=== PATIENT | male | born 2000 | race Hispanic/Latino ===

== ENCOUNTER 2024-09-09 12:24 | Emergency (ER) | payer BC, OTHER, SELFPAY ==
--- OUTSIDE RECORDS SUMMARY | 2024-09-09 12:29 | XMS REPORT | Continuity of Care Document ---
Author Name Unknown Address [address] [facility] [address] [place] [address] [facility] Address [address] [facility] [place] [address] Care Team Providers Care Precision Lens Technician Name Role Phone No MD, Pcp Primary Care Physician Unavailab ANGELICA Hunt Attending Clinician Unavail able Doctor Unassigned, [place] Attending Clinician U BEATRIZ Ryan Attending Clinician Unavailable BEATRIZ RIZVI Attending Clinician Unavailable Beatriz Rizvi DO Attending Clinician [phone] Doctor Unassigned, [place] Attending Clinician U Angelica Martinez MD Attending Clinician ASHELY AGARWAL Attending Clinician Unavaila Ashely Busch Attending Clinician + [phone] Zita Agee MD Attending Clinician Ebony Singh MD Attending Clinician [phone] ZITA AGEE Attending Clinician Candice osmanilaSumi Gooden APRN Attending Clinician [phone] EBONY SINGH Attending Clinician Unav ailable TODD PEREIRA Attending Clinician Unavailable Todd May Attending Clinician [phone] ANGELICA MONTANO Admitting Clinician Unavail able BEATRIZ RIZVI Admitting Clinician Unavailable Charmaine MALLORY, Angelica German Admitting Clinician TODD PEREIRA Admitting Clinician Unavailable Payers Payer Name Policy Type Policy Number Effective Date Expirati on Date Source [facility] [id number] 2022 00:00:00 [employer] [place] [id number] 2022 00:00:00 2022 00:00:00 Problems Condition Name Condition Details Condition Category Status Onset Date Resolution Date Last Treatment Date Treating Clinician Comments Source Obesity (BMI 30-39.9) Obesity (BMI 30-39.9) Disease Active 5-20 00:00: 00 [facility] Acute left ankle pain Acute left ankle pain Disease Active 7-13 00:00: 00 [facility] Complete rupture of left Achilles tendon Complete rupture of left Achilles tendon Disease Active 7-11 00:00: 00 [facility] Mass of left thigh Mass of left thigh Disease Active 1-27 00:00: 00 [facility] Allergies, Adverse Reactions, Alerts Allergy Name Allergy Type Status Severity Reaction(s) Onset Date Inactive Date Treating Clinician Comments Source NO KNOWN ALLERGIE S Drug Class Active [facility] Social History Social Habit Start Date Stop Date Quantity Comments Source [facility] of tobacco use Cigar Smoker [facility] Alcoholic beverage intake 2023-08-29 00:00:00 2023-08-29 00:00:00 Ex-drinker (finding) [facility] Tobacco use and exposure 2023-08-29 00:00:00 2023-08-29 00:00:00 Smokeless tobacco non-user [facility] Alcohol intake 2023-07-06 00:00:00 2023-07-06 00:00:00 Ex-drinker (finding) [facility] History of Social function 2023-07-05 00:00:00 2023-07-05 00:00:00 [facility] Exposure to SARS-CoV-2 (event) 2022-07-01 00:00:00 2022-07-11 08:28:00 Not sure [facility] Sex assigned at 2000 00:00:00 2000 00:00:00 [facility] Smoking Status Start Date Stop Date Source Tobacco smoking consumption unknown [facility] Occasional tobacco smoker 2023-08-29 00:00:00 [facility] Smokes tobacco daily 2023-07-05 00:00:00 [facility] Never smoked tobacco [facility] Medications Ordered Medication Name Filled Medication Name Start Date Stop Date Current Medication? Ordering Clinician Indication Dosage Frequency Signature (SIG) Comments Components Source dexamethaso ne sod phos PF injection 10 mg 2023-05 17:15: 00 03-31 16:24 :00 No 10mg 10 mg, Oral, ONCE, 1 dose, On Sat03/31/24 at 1115, Routine [facility] ondansetron (ZOFRAN-ODT ) disintegrat ing tablet 4 mg 2023-05 15:30: 00 03-31 14:31 :00 No 4mg 4 mg, Oral, ONCE, 1 dose, On Sat03/31/24 at 0930, Routine [facility] HYDROcodone -acetaminop hen (NORCO) 10-325 mg tablet 1 tablet 2023-05 15:30: 00 03-31 14:31 :00 No 1{tbl} 1 tablet, Oral, ONCE NOW, 1 dose, On Sat03/31/24 at 0930, Routine [facility] naproxen 500 mg tablet 2023-05 00:00: 00 Yes [id number] 500mg Take 1 tablet by mouth in the morning and 1 tablet in the evening. Take with meals. [facility] HYDROcodone -acetaminop hen (NORCO 5) 5-325 mg tablet 1 tablet 10-23 03:15: 00 10-23 02:35 :00 No 1{tbl} 1 tablet, Oral, ONCE, 1 dose, On Sat10/23/23 at 2215, PATRICIO [facility] cephALEXin 500 mg tablet 10-22 00:00: 00 10-30 04:59 :00 No [id number] 500mg Take 1 tablet by mouth in the morning and 1 tablet at noon and 1 tablet in the evening. Do all this for 7 days. [facility] HYDROcodone -acetaminop hen (NORCO 5) 5-325 mg tablet 1 tablet 10-13 15:15: 00 10-13 15:59 :00 No 1{tbl} 1 tablet, Oral, ONCE, 1 dose, On Sat10/14/23 at 1015, Routine, PACU [facility] traMADoL (ULTRAM) tablet 50 mg 10-13 15:11: 29 10-13 21:22 :13 No 50mg [facility] acetaminoph en (TYLENOL) tablet 650 mg 10-13 15:11: 29 10-13 21:22 :13 No 650mg [facility] FENTanyl PF (SUBLIMAZE (PF)) injection 25 mcg 10-13 15:11: 26 10-13 21:22 :13 No 25ug 25 mcg, Slow IV Push, Q5MIN PRN, 4 doses, Starting on Sat10/14/23 at 1011, Until Sat10/14/23 at 1622, Routine, Pain (scale 4-6), PACU [facility] NaCl 0.9% (NS) injection 10-13 14:20: 00 10-13 15:17 :22 No PRN, Starting on Sat10/14/23 at 0920, Until Sat10/14/23 at 1017, Routine, Intra-op [facility] bupivacaine (preserv free) (SENSORCAIN E MPF) 0.25 % (2.5 mg/mL) injection 10-13 14:18: 00 10-13 15:17 :22 No PRN, Starting on Sat10/14/23 at 0918, Until Sat10/14/23 at 1017, Routine, Intra-op [facility] lactated ringers IV infusion 1,000 mL 10-13 13:15: 00 10-13 13:14 :00 No 1000mL at 42 mL/hr, 1,000 mL, IV Infusion, ONCE, 1 dose, On Sat10/14/23 at 0815, Routine, DSU Pre-op [facility] traMADoL 50 mg tablet 10-13 00:00: 00 10-21 04:59 :00 No [id number] 50mg Take 1 tablet by mouth every 6 (six) hours as needed for Pain (scale 4-6) or Pain (scale 7-10) for up to 7 days. Indication s: acute pain [facility] iopamidol (ISOVUE 370-500 mL) injection 100 mL 10-01 13:29: 00 10-01 13:35 :00 No [id number] 100mL 100 mL, Intravenou s, ONCE, 1 dose, On Sat10/02/23 at 0845, Routine [facility] traMADol (Ultram) 50 MG tablet 12-31 00:00: 00 Yes [id number] 100mg Q6H Take 2 tablets (100 mg total) by mouth every 6 (six) hours if needed for moderate pain. [facility] HYDROcodone -acetaminop hen ([place]) 10-325 MG tablet 12-31 00:00: 00 Yes [id number] 1{tbl} Take 1 tablet by mouth every 4 (four) hours if needed for severe pain. [facility] ibuprofen 800 mg tablet 2-15 00:00: 00 Yes [id number] 800mg Take 1 tablet by mouth every 8 (eight) hours as needed for Pain (scale 4-6). [facility] No known medications 06-22 18:10: 03 No [facility] Immunizations Ordered Immunization Name Filled Immunization Name Date Status Comments Source HPV 2014-10-21 00:00:00 Completed HPV 2013-10-16 00:00:00 Completed HPV 2013-01-13 00:00:00 Completed TDAP 2011-09-27 00:00:00 Completed Meningococcal Polysaccharide (groups A, C, Y and W-135) conjugate vaccine (MCV4P) 2011-09-27 00:00:00 Completed HEPATITIS A 2011-09-27 00:00:00 Completed Varicella (varivax)(chicken pox) 2007-11-10 00:00:00 Completed HEPATITIS A 2007-11-10 00:00:00 Completed IPV 2003-09-08 00:00:00 Completed MMR 2003-09-08 00:00:00 Completed DTaP, Unspecified Formulation 2003-09-08 00:00:00 Completed Varicella (varivax)(chicken pox) 2003-02-01 00:00:00 Completed [facility] Hep B, Adol or Pedi Dosage 2001-10-27 00:00:00 Completed IPV 2000-09-10 00:00:00 Completed MMR 2000-09-10 00:00:00 Completed HIB 4 Dose Schedule 2000-09-10 00:00:00 Completed Hep B, Adol or Pedi Dosage 2000-09-10 00:00:00 Completed DTaP, Unspecified Formulation 2000-09-10 00:00:00 Completed HIB 4 Dose Schedule 1999 00:00:00 Completed Hep B, Adol or Pedi Dosage 1999 00:00:00 Completed DTaP, Unspecified Formulation 1999 00:00:00 Completed IPV 1999 00:00:00 Completed HIB 4 Dose Schedule 1999 00:00:00 Completed DTaP, Unspecified Formulation 1999 00:00:00 Completed IPV 1999 00:00:00 Completed HIB 4 Dose Schedule 1999 00:00:00 Completed DTaP, Unspecified Formulation 1999 00:00:00 Completed DTaP, Unspecified Formulation Unknown Completed [facility] TDAP Unknown Completed [facility] Meningococcal Polysaccharide (groups A, C, Y and W-135) conjugate vaccine (MCV4P) Unknown Completed [facility] Varicella (varivax)(chicken pox) Unknown Completed [facility] IPV Unknown Completed [facility] MMR Unknown Completed [facility] HPV Unknown Completed [facility] HIB 4 Dose Schedule Unknown Completed [facility] Hep B, Adol or Pedi Dosage Unknown Completed [facility] HEPATITIS A Unknown Completed [facility] DTaP, Unspecified Formulation Unknown Completed [facility] Varicella (varivax)(chicken pox) Unknown Completed [facility] TDAP Unknown Completed [facility] IPV Unknown Completed [facility] MMR Unknown Completed [facility] Meningococcal Polysaccharide (groups A, C, Y and W-135) conjugate vaccine (MCV4P) Unknown Completed [facility] HPV Unknown Completed [facility] Varicella (varivax)(chicken pox) Unknown Completed [facility] HIB 4 Dose Schedule Unknown Completed [facility] Hep B, Adol or Pedi Dosage Unknown Completed [facility] HEPATITIS A Unknown Completed [facility] DTaP, Unspecified Formulation Unknown Completed [facility] Varicella (varivax)(chicken pox) Unknown Completed [facility] TDAP Unknown Completed [facility] TDAP Unknown Completed [facility] IPV Unknown Completed [facility] MMR Unknown Completed [facility] Meningococcal Polysaccharide (groups A, C, Y and W-135) conjugate vaccine (MCV4P) Unknown Completed [facility] HPV Unknown Completed [facility] IPV Unknown Completed [facility] HIB 4 Dose Schedule Unknown Completed [facility] Hep B, Adol or Pedi Dosage Unknown Completed [facility] HEPATITIS A Unknown Completed [facility] DTaP, Unspecified Formulation Unknown Completed [facility] MMR Unknown Completed [facility] Meningococcal Polysaccharide (groups A, C, Y and W-135) conjugate vaccine (MCV4P) Unknown Completed [facility] HPV Unknown Completed [facility] HIB 4 Dose Schedule Unknown Completed [facility] Hep B, Adol or Pedi Dosage Unknown Completed [facility] HEPATITIS A Unknown Completed [facility] DTaP, Unspecified Formulation Unknown Completed [facility] TDAP Unknown Completed [facility] Meningococcal Polysaccharide (groups A, C, Y and W-135) conjugate vaccine (MCV4P) Unknown Completed [facility] Varicella (varivax)(chicken pox) Unknown Completed [facility] IPV Unknown Completed [facility] MMR Unknown Completed [facility] HPV Unknown Completed [facility] HIB 4 Dose Schedule Unknown Completed [facility] Hep B, Adol or Pedi Dosage Unknown Completed [facility] HEPATITIS A Unknown Completed [facility] DTaP, Unspecified Formulation Unknown Completed [facility] Varicella (varivax)(chicken pox) Unknown Completed [facility] TDAP Unknown Completed [facility] IPV Unknown Completed [facility] MMR Unknown Completed [facility] Meningococcal Polysaccharide (groups A, C, Y and W-135) conjugate vaccine (MCV4P) Unknown Completed [facility] HPV Unknown Completed [facility] HIB 4 Dose Schedule Unknown Completed [facility] Hep B, Adol or Pedi Dosage Unknown Completed [facility] HEPATITIS A Unknown Completed [facility] DTaP, Unspecified Formulation Unknown Completed [facility] Varicella (varivax)(chicken pox) Unknown Completed [facility] TDAP Unknown Completed [facility] IPV Unknown Completed [facility] MMR Unknown Completed [facility] Meningococcal Polysaccharide (groups A, C, Y and W-135) conjugate vaccine (MCV4P) Unknown Completed [facility] HPV Unknown Completed [facility] HIB 4 Dose Schedule Unknown Completed [facility] Hep B, Adol or Pedi Dosage Unknown Completed [facility] HEPATITIS A Unknown Completed [facility] DTaP, Unspecified Formulation Unknown Completed [facility] Varicella (varivax)(chicken pox) Unknown Completed [facility] TDAP Unknown Completed [facility] IPV Unknown Completed [facility] MMR Unknown Completed [facility] Meningococcal Polysaccharide (groups A, C, Y and W-135) conjugate vaccine (MCV4P) Unknown Completed [facility] HPV Unknown Completed [facility] HIB 4 Dose Schedule Unknown Completed [facility] Hep B, Adol or Pedi Dosage Unknown Completed [facility] HEPATITIS A Unknown Completed [facility] DTaP, Unspecified Formulation Unknown Completed [facility] Varicella (varivax)(chicken pox) Unknown Completed [facility] TDAP Unknown Completed [facility] IPV Unknown Completed [facility] MMR Unknown Completed [facility] Meningococcal Polysaccharide (groups A, C, Y and W-135) conjugate vaccine (MCV4P) Unknown Completed [facility] HPV Unknown Completed [facility] HIB 4 Dose Schedule Unknown Completed [facility] Hep B, Adol or Pedi Dosage Unknown Completed [facility] HEPATITIS A Unknown Completed [facility] DTaP, Unspecified Formulation Unknown Completed [facility] Varicella (varivax)(chicken pox) Unknown Completed [facility] TDAP Unknown Completed [facility] IPV Unknown Completed [facility] MMR Unknown Completed [facility] Meningococcal Polysaccharide (groups A, C, Y and W-135) conjugate vaccine (MCV4P) Unknown Completed [facility] HPV Unknown Completed [facility] HIB 4 Dose Schedule Unknown Completed [facility] Hep B, Adol or Pedi Dosage Unknown Completed [facility] HEPATITIS A Unknown Completed [facility] DTaP, Unspecified Formulation Unknown Completed [facility] Varicella (varivax)(chicken pox) Unknown Completed [facility] TDAP Unknown Completed [facility] IPV Unknown Completed [facility] MMR Unknown Completed [facility] Meningococcal Polysaccharide (groups A, C, Y and W-135) conjugate vaccine (MCV4P) Unknown Completed [facility] HPV Unknown Completed [facility] HIB 4 Dose Schedule Unknown Completed [facility] Hep B, Adol or Pedi Dosage Unknown Completed [facility] HEPATITIS A Unknown Completed [facility] DTaP, Unspecified Formulation Unknown Completed [facility] Varicella (varivax)(chicken pox) Unknown Completed [facility] TDAP Unknown Completed [facility] IPV Unknown Completed [facility] MMR Unknown Completed [facility] Meningococcal Polysaccharide (groups A, C, Y and W-135) conjugate vaccine (MCV4P) Unknown Completed [facility] HPV Unknown Completed [facility] HIB 4 Dose Schedule Unknown Completed [facility] Hep B, Adol or Pedi Dosage Unknown Completed [facility] HEPATITIS A Unknown Completed [facility] DTaP, Unspecified Formulation Unknown Completed [facility] Varicella (varivax)(chicken pox) Unknown Completed [facility] TDAP Unknown Completed [facility] IPV Unknown Completed [facility] MMR Unknown Completed [facility] Meningococcal Polysaccharide (groups A, C, Y and W-135) conjugate vaccine (MCV4P) Unknown Completed [facility] HPV Unknown Completed [facility] HIB 4 Dose Schedule Unknown Completed [facility] Hep B, Adol or Pedi Dosage Unknown Completed [facility] HEPATITIS A Unknown Completed [facility] DTaP, Unspecified Formulation Unknown Completed [facility] Varicella (varivax)(chicken pox) Unknown Completed [facility] TDAP Unknown Completed [facility] IPV Unknown Completed [facility] MMR Unknown Completed [facility] Meningococcal Polysaccharide (groups A, C, Y and W-135) conjugate vaccine (MCV4P) Unknown Completed [facility] HPV Unknown Completed [facility] HIB 4 Dose Schedule Unknown Completed [facility] Hep B, Adol or Pedi Dosage Unknown Completed [facility] HEPATITIS A Unknown Completed [facility] DTaP, Unspecified Formulation Unknown Completed [facility] Varicella (varivax)(chicken pox) Unknown Completed [facility] TDAP Unknown Completed [facility] IPV Unknown Completed [facility] MMR Unknown Completed [facility] Meningococcal Polysaccharide (groups A, C, Y and W-135) conjugate vaccine (MCV4P) Unknown Completed [facility] HPV Unknown Completed [facility] HIB 4 Dose Schedule Unknown Completed [facility] Hep B, Adol or Pedi Dosage Unknown Completed [facility] HEPATITIS A Unknown Completed [facility] DTaP, Unspecified Formulation Unknown Completed [facility] Varicella (varivax)(chicken pox) Unknown Completed [facility] TDAP Unknown Completed [facility] IPV Unknown Completed [facility] MMR Unknown Completed [facility] Meningococcal Polysaccharide (groups A, C, Y and W-135) conjugate vaccine (MCV4P) Unknown Completed [facility] HPV Unknown Completed [facility] HIB 4 Dose Schedule Unknown Completed [facility] Hep B, Adol or Pedi Dosage Unknown Completed [facility] HEPATITIS A Unknown Completed [facility] DTaP, Unspecified Formulation Unknown Completed [facility] Varicella (varivax)(chicken pox) Unknown Completed [facility] TDAP Unknown Completed [facility] IPV Unknown Completed [facility] MMR Unknown Completed [facility] Meningococcal Polysaccharide (groups A, C, Y and W-135) conjugate vaccine (MCV4P) Unknown Completed [facility] HPV Unknown Completed [facility] HIB 4 Dose Schedule Unknown Completed [facility] Hep B, Adol or Pedi Dosage Unknown Completed [facility] HEPATITIS A Unknown Completed [facility] DTaP, Unspecified Formulation Unknown Completed [facility] Varicella (varivax)(chicken pox) Unknown Completed [facility] TDAP Unknown Completed [facility] IPV Unknown Completed [facility] MMR Unknown Completed [facility] Meningococcal Polysaccharide (groups A, C, Y and W-135) conjugate vaccine (MCV4P) Unknown Completed [facility] HPV Unknown Completed [facility] TDAP Unknown Completed [facility] Meningococcal Polysaccharide (groups A, C, Y and W-135) conjugate vaccine (MCV4P) Unknown Completed [facility] HIB 4 Dose Schedule Unknown Completed [facility] Varicella (varivax)(chicken pox) Unknown Completed [facility] IPV Unknown Completed [facility] MMR Unknown Completed [facility] HPV Unknown Completed [facility] HIB 4 Dose Schedule Unknown Completed [facility] Hep B, Adol or Pedi Dosage Unknown Completed [facility] HEPATITIS A Unknown [facility] [facility] DTaP, Unspecified Formulation Unknown Completed [facility] Varicella (varivax)(chicken pox) Unknown Completed [facility] TDAP Unknown Completed [facility] IPV Unknown Completed [facility] Hep B, Adol or Pedi Dosage Unknown Completed [facility] MMR Unknown Completed [facility] Meningococcal Polysaccharide (groups A, C, Y and W-135) conjugate vaccine (MCV4P) Unknown Completed [facility] HPV Unknown Completed [facility] HIB 4 Dose Schedule Unknown Completed [facility] Hep B, Adol or Pedi Dosage Unknown Completed [facility] HEPATITIS A Unknown Completed [facility] DTaP, Unspecified Formulation Unknown Completed [facility] HEPATITIS A Unknown Completed [facility] Varicella (varivax)(chicken pox) Unknown Completed [facility] TDAP Unknown Completed [facility] IPV Unknown Completed [facility] MMR Unknown Completed [facility] Meningococcal Polysaccharide (groups A, C, Y and W-135) conjugate vaccine (MCV4P) Unknown Completed [facility] HPV Unknown Completed [facility] HIB 4 Dose Schedule Unknown Completed [facility] Hep B, Adol or Pedi Dosage Unknown Completed [facility] HEPATITIS A Unknown Completed [facility] DTaP, Unspecified Formulation Unknown Completed [facility] Vital Signs Vital Name Observation Time Observation Value Comments S ource Systolic blood pressure 2024-03-31 16:25:00 135 mm[Hg] [facility] Diastolic blood pressure 2024-03-31 16:25:00 89 mm[Hg] [facility] Heart rate 2024-03-31 16:25:00 74 /min [facility] Body temperature 2024-03-31 16:25:00 37.11 [place] [facility] Respiratory rate 2024-03-31 16:25:00 19 /min [facility] Oxygen saturation in Arterial blood by Pulse oximetry 2024-03-31 16:25:00 100 /min [facility] Body height 2024-03-31 14:00:00 172.7 cm [facility] Body weight 2024-03-31 14:00:00 90.719 kg [facility] BMI 2024-03-31 14:00:00 30.41 kg/m2 [facility] Systolic blood pressure 2023-10-28 13:06:00 150 mm[Hg] [facility] Diastolic blood pressure 2023-10-28 13:06:00 107 mm[Hg] [facility] Heart rate 2023-10-28 13:06:00 71 /min [facility] Oxygen saturation in Arterial blood by Pulse oximetry 2023-10-28 13:06:00 100 /min [facility] Body temperature 2023-10-28 13:04:00 36.17 [place] [facility] Respiratory rate 2023-10-28 13:04:00 16 /min [facility] Body weight 2023-10-28 13:04:00 94.802 kg [facility] BMI 2023-10-28 13:04:00 31.78 kg/m2 [facility] Systolic blood pressure 2023-10-24 01:54:00 124 mm[Hg] [facility] Diastolic blood pressure 2023-10-24 01:54:00 113 mm[Hg] [facility] Heart rate 2023-10-24 01:54:00 79 /min [facility] Body temperature 2023-10-24 01:54:00 37.5 [place] [facility] Respiratory rate 2023-10-24 01:54:00 18 /min [facility] Body height 2023-10-24 01:54:00 172.7 cm [facility] Body weight 2023-10-24 01:54:00 95.165 kg [facility] BMI 2023-10-24 01:54:00 31.90 kg/m2 [facility] Oxygen saturation in Arterial blood by Pulse oximetry 2023-10-24 01:54:00 100 /min [facility] Systolic blood pressure 2023-10-14 16:14:00 146 mm[Hg] [facility] Diastolic blood pressure 2023-10-14 16:14:00 101 mm[Hg] [facility] Heart rate 2023-10-14 16:08:00 67 /min [facility] Respiratory rate 2023-10-14 16:08:00 14 /min [facility] Oxygen saturation in Arterial blood by Pulse oximetry 2023-10-14 16:08:00 100 /min [facility] Body temperature 2023-10-14 15:16:00 35.83 [place] [facility] Body height 2023-10-04 21:00:00 172.7 cm [facility] Body weight 2023-10-04 21:00:00 90.719 kg [facility] BMI 2023-10-04 21:00:00 30.41 kg/m2 [facility] Systolic blood pressure 2023-10-14 15:46:00 141 mm[Hg] [facility] Diastolic blood pressure 2023-10-14 15:46:00 102 mm[Hg] [facility] Heart rate 2023-10-14 15:46:00 69 /min [facility] Respiratory rate 2023-10-14 15:46:00 14 /min [facility] Oxygen saturation in Arterial blood by Pulse oximetry 2023-10-14 15:46:00 100 /min [facility] Body temperature 2023-10-14 15:16:00 35.83 [place] [facility] Body height 2023-10-04 21:00:00 172.7 cm [facility] Body weight 2023-10-04 21:00:00 90.719 kg [facility] BMI 2023-10-04 21:00:00 30.41 kg/m2 [facility] Systolic blood pressure 2023-08-19 13:09:00 146 mm[Hg] [place] [facility] Diastolic blood pressure 2023-08-19 13:09:00 99 mm[Hg] [facility] Heart rate 2023-08-19 13:09:00 66 /min Unive [facility] Oxygen saturation in Arterial blood by Pulse oximetry 2023-08-19 13:09:00 100 /min [facility] Body temperature 2023-08-19 13:07:00 36.61 [place] [facility] Respiratory rate 2023-08-19 13:07:00 18 /min [facility] Body height 2023-08-19 13:07:00 174 cm Univ [facility] Body weight 2023-08-19 13:07:00 90.266 kg [facility] BMI 2023-08-19 13:07:00 29.82 kg/m2 Univ [facility] Systolic blood pressure 2023-07-05 19:08:00 129 mm[Hg] [facility] Diastolic blood pressure 2023-07-05 19:08:00 88 mm[Hg] [facility] Heart rate 2023-07-05 19:08:00 65 /min [facility] Body height 2023-07-05 19:08:00 174 cm [facility] Body weight 2023-07-05 19:08:00 93.123 kg [facility] BMI 2023-07-05 19:08:00 30.76 kg/m2 [facility] Oxygen saturation in Arterial blood by Pulse oximetry 2023-07-05 19:08:00 100 /min [facility] Systolic blood pressure 2022-07-11 14:29:00 145 mm[Hg] [facility] Diastolic blood pressure 2022-07-11 14:29:00 100 mm[Hg] [facility] Heart rate 2022-07-11 14:29:00 83 /min [facility] Body temperature 2022-07-11 14:29:00 37 [place] [facility] Respiratory rate 2022-07-11 14:29:00 18 /min [facility] Body height 2022-07-11 14:29:00 172.7 cm [facility] Body weight 2022-07-11 14:29:00 105.688 kg [facility] BMI 2022-07-11 14:29:00 35.43 kg/m2 [facility] Oxygen saturation in Arterial blood by Pulse oximetry 2022-07-11 14:29:00 99 /min [facility] Systolic blood pressure 2021-06-22 20:51:00 119 mm[Hg] [facility] Diastolic blood pressure 2021-06-22 20:51:00 81 mm[Hg] [facility] Heart rate 2021-06-22 20:51:00 102 /min [facility] Body temperature 2021-06-22 20:51:00 36.72 [place] [facility] Respiratory rate 2021-06-22 20:51:00 20 /min [facility] Body height 2021-06-22 20:51:00 174 cm [facility] Body weight 2021-06-22 20:51:00 100.971 kg [facility] BMI 2021-06-22 20:51:00 33.35 kg/m2 [facility] Procedures Procedure Date / Time Performed Performing Clinician Source [place] SIMPLE REPAIR F/E/E/N/L/M 2.5CM/< 2024-03-31 16:06:42 Beatriz Rizvi [facility] CT MAXILLOFACIAL/MANDIBLE WO CONTRAST 2024-03-31 14:32:00 Beatriz Rizvi [facility] CT HEAD WO CONTRAST 2024-03-31 14:32:00 Jayant Rizvi [facility] [address] - [place] EXC B9 LESION MRGN XCP SK TG T/A/L >4.0 CM 2023-10-14 13:43:00 Angeilca Montano [facility] [address] - [place] EXC TUMOR SOFT TISSUE THIGH/KNEE SUBFASC 5 CM/> 2023-10-14 13:43:00 Angelica Montano [facility] CT FEMUR LEFT W CONTRAST 2023-10-02 13:34:14 Do scottie Montano [facility] HB CREATININE SERUM/BLOOD FOR IMAGING 2023-10-02 13:20:00 Angelica Montano [facility] PHYSICIAN ORDERS 2023-09-17 17:20:04 Doctor Unas signed, [place] [facility] RADIOLOGY DOCUMENTATION 2023-08-08 05:01:00 Doct or Unassigned, [place] [facility] REFERRAL- REQUEST/RESPONSE 2023-07-26 06:01:00 Doctor Unassigned, [place] [facility] XR HAND 3+ VW LEFT 2023-07-05 19:55:00 Zita Cortes [facility] XR TIBIA FIBULA 2 VW LEFT 2022-07-11 14:54:28 Todd Pereira [facility] NOTICE OF PRIVACY PRACTICES 2022-07-11 14:22:44 Doctor Unassigned, [place] [facility] CONSENT/REFUSAL FOR DIAGNOSIS AND TREATMENT 2022-07-11 14:19:52 Doctor Unassigned, [place] [facility] Encounters Start Date/Time End Date/Time Encounter Type Admission Type Attending Clinicians Care Facility Care Department Encounter ID Source 2023-08-27 14:37:55 Outpatient ANGELICA BARRAGAN [facility] MARANDA [id number] [facility] 2022-12-27 11:08:[address] [facility] [id number] [facility] 2022-12-04 09:26:[address] [facility] [id number] [facility] 2022-12-03 09:40:[address] [facility] [id number] [facility] 2022-11-30 16:13:[address] [facility] [id number] [facility] 2023-09-17 00:00:00 2024-07-11 02:14:37 Orders Only Doctor Unassigned, [place] Doctor Unassigned, [place] [facility] 1.2.840.114 350.1.13.10 4.2.7.2.686 [id number] [facility] 2024-03-31 08:02:00 2024-03-31 10:28:00 Emergency BEATRIZ PAYNE PH[facility]IP [facility] [id number] [facility] 2024-03-31 08:02:00 2024-03-31 10:28:00 Emergency Beatriz Rizvi [facility] 1..840.114 350.1.13.10 4.2.7.2.686 [id number] [facility] 2023-10-23 00:00:00 2023-11-23 18:15:40 Patient Secure Msg Doctor Unassigned, [place] [facility] 1..840.114 350.1.13.10 4.2.7.2.686 [id number] [facility] 2023-10-07 00:00:00 2023-11-09 18:21:39 Patient Secure Msg Doctor Unassigned, [place] [facility] 1..840.114 350.1.13.10 4.2.7.2.686 [id number] [facility] 2023-10-28 08:00:00 2023-10-28 08:29:58 Outpatient ANGELICA BARRAGAN [facility] [id number] [facility] 2023-10-28 08:00:00 2023-10-28 08:29:58 Office Visit Angelica Montano [facility] BU[facility] 1.2.840.114 350.1.13.10 4.2.7.2.686 [id number] [facility] 2023-10-23 20:56:00 2023-10-23 21:48:00 Emergency X ASHELY AGARWAL [facility] ERT [id number] [facility] 2023-10-23 20:56:00 2023-10-23 21:48:00 Emergency [facility] 1.2.840.114 350.1.13.10 4.2.7.2.686 [id number] [facility] 2023-10-23 00:00:00 2023-10-23 14:47:46 Telephone Angelica Montano [facility] 1.2.840.114 350.1.13.10 4.2.7.2.686 [id number] [facility] 2023-10-23 00:00:00 2023-10-23 11:11:08 Telephone Angelica Montano [facility] 1.2.840.114 350.1.13.10 4.2.7.2.686 [id number] [facility] 2023-10-04 00:00:00 2023-10-14 13:23:55 Telephone Angelica Montano [facility] 1.2.840.114 350.1.13.10 4.2.7.2.686 [id number] [facility] 2023-10-14 08:01:00 2023-10-14 11:24:00 Outpatient R ANGELICA MONTANO [facility] [id number] [facility] 2023-10-14 08:01:00 2023-10-14 11:24:00 Hospital Encounter Charmaine, Angelica Maxi [facility] 1.2.840.114 350.1.13.10 4.2.7.2.686 [id number] [facility] 2023-10-14 09:10:00 2023-10-14 10:46:00 Surgery Angelica Montano [facility] 1.2.840.114 350.1.13.10 4.2.7.2.686 [id number] [facility] 2023-10-02 07:59:19 2023-10-02 23:59:00 Outpatient R ANGELICA MONTANO [facility] [id number] [facility] 2023-10-02 07:59:19 2023-10-02 23:59:00 Hospital Encounter Angelica Montano [facility] 1.2.840.114 350.1.13.10 4.2.7.2.686 [id number] [facility] 2023-09-30 00:00:00 2023-10-01 09:25:48 Telephone Angelica Montano [facility] 1.2.840.114 350.1.13.10 4.2.7.2.686 [id number] [facility] 2023-08-27 00:00:00 2023-08-27 00:00:00 Patient Secure Msg Doctor Unassigned, [place] [facility] 1.2.840.114 350.1.13.10 4.2.7.2.686 [id number] [facility] 2023-08-23 00:00:00 2023-08-23 00:00:00 Prep For Surgery Angelica Montano [facility] 1.2.840.114 350.1.13.10 4.2.7.2.686 [id number] [facility] 2023-08-19 08:00:00 2023-08-19 09:54:48 Outpatient R CHARMAINE ANGELICA [facility] [id number] [facility] 2023-08-19 08:00:00 2023-08-19 09:54:48 Office Visit Angelica Montano [facility] 1.2.840.114 350.1.13.10 4.2.7.2.686 [id number] [facility] 2023-08-08 00:00:00 2023-08-08 00:00:00 Orders Only Doctor Unassigned, [place] [facility] 1.2840.114 350.1.13.10 4.2.7.2.686 [id number] [facility] 2023-08-01 00:00:00 2023-08-01 00:00:00 Telephone Zita Agee [facility] 1.2840.114 350.1.13.10 4.2.7.2.686 [id number] [facility] 2023-07-26 00:00:00 2023-07-26 00:00:00 Orders Only Doctor Unassigned, [place] [facility] 1.2840.114 350.1.13.10 4.2.7.2.686 [id number] [facility] 2023-07-16 00:00:00 2023-07-16 00:00:00 Patient Secure Msg Zita Agee [facility] 1.2840.114 350.1.13.10 4.2.7.2.686 [id number] [facility] 2023-07-08 09:15:00 2023-07-08 09:39:14 Office Visit Ebony Singh [place] [facility] 1.2.840.114 350.1.13.58 9.2.7.2.686 [id number] [facility] 2023-07-05 13:28:53 2023-07-05 23:59:00 Outpatient R TAEZITA REAVES [facility] [id number] [facility] 2023-07-05 13:28:53 2023-07-05 23:59:00 Hospital Encounter Zita Agee [facility] 1.2.840.114 350.1.13.10 4.2.7.2.686 [id number] [facility] 2023-07-05 13:28:27 2023-07-05 23:59:00 Hospital Encounter Zita Agee [facility] 1.2.840.114 350.1.13.10 4.2.7.2.686 [id number] [facility] 2023-07-05 13:00:00 2023-07-05 13:29:30 Office Visit Zita Agee [facility] 1.2.840.114 350.1.13.10 4.2.7.2.686 [id number] [facility] 2023-04-16 09:15:00 2023-04-16 10:03:59 [facility] 1.2.840.114 350.1.13.58 9.2.7.2.686 [id number] [facility] 2023-03-18 08:45:00 2023-03-18 09:10:46 Office [place] Ebony Singh [place] [facility] 1.2.840.114 350.1.13.58 9.2.7.2.686 [id number] [facility] 2023-02-18 08:45:00 2023-02-18 08:58:44 Office [place] Ebony Singh [place] [facility] 1.2.840.114 350.1.13.58 9.2.7.2.686 [id number] [facility] 2023-01-21 11:00:00 2023-01-21 11:43:35 Office Visit Sumi French [facility] 1 1.2840.114 350.1.13.58 9.2.7.2.686 [id number] [facility] 2023-01-03 07:51:00 2023-01-03 12:47:00 Outpatient EBONY SINGH [facility] [id number] [facility] 2023-01-03 11:00:00 2023-01-03 11:00:00 Outpatient EBONY SINGH [facility] [id number] [facility] 2022-12-04 09:45:00 2022-12-04 11:11:07 Office Visit Ebony Singh [facility] 1 1.2.114 350.1.13.58 9.2.7.2.686 [id number] [facility] 2022-12-04 10:40:00 2022-12-04 10:40:[address] [facility] [id number] [facility] 2022-07-18 00:00:00 2022-07-18 00:00:00 Patient Secure Msg Doctor Unassigned, [place] [facility] 1..114 350.1.13.10 4.2.7.2.686 [id number] [facility] 2022-07-11 08:31:00 2022-07-11 11:06:00 Emergency X TODD PEREIRA [facility] ERT [id number] [facility] 2022-07-11 08:31:00 2022-07-11 11:06:00 Emergency Todd Pereira [facility] 1.2.840.114 350.1.13.10 4.2.7.2.686 [id number] [facility] 2021-07-03 11:00:00 2021-07-03 11:00:00 Outpatient [facility] [id number] [facility] 2021-06-22 14:30:00 2021-06-22 15:06:55 [facility] 1.2.840.114 350.1.13.10 4.2.7.2.686 [id number] [facility] Results Test Description Test Time Test Comments Results Result Comments Source Laceration Repair 16:06:42 Beatriz Rizvi DO ? ? 03/31/2024 10:13 AMLaceration Repair Date/Time: 03/31/2024 10:06 AM Performed by: Beatriz Rizvi DOAuthorized by: Beatriz Rizvi DO ?Consent: ?Consent obtained: ?Verbal ?Consent given by: ?Patient ?Risks discussed: ?Pain, poor cosmetic result, poor wound healing and infectionUniversal protocol: ?Imaging studies available: yes ? ?Patient identity confirmed: ?Verbally with patientAnesthesia: ?Anesthesia method: ?Nerve block ?Block location: ?Exterior ethmoid and infratrochlear nerve blocks ?Block needle gauge: ?27 G ?Block anesthetic: ?Lidocaine 1% w/o epiLaceration details: ?Location: ?Face ?Face location: ?Nose ?Length (cm): ?2Pre-procedure details: ?Preparation: ?Patient was prepped and draped in usual sterile fashionExploration: ?Contaminated: no ?Treatment: ?Area cleansed with: ?Chlorhexidine ?Amount of cleaning: ?StandardSkin repair: ?Repair method: ?Sutures ?Suture size: ?6-0 ?Suture material: ?Prolene ?Suture technique: ?Simple interrupted ?Number of sutures: ?2Approximation: ?Approximation: ?CloseRepair type: ?Repair type: ?SimplePost-procedure details: ?Dressing: ?Open (no dressing) ?Procedure completion: ?Tolerated [facility] CT HEAD WO CONTRAST 5 15:29:03 EXAM: CT HEAD WO CONTRAST, CT MAXILLOFACIAL/MANDIBLE WO CONTRAST HISTORY: Football injury TECHNIQUE: CT imaging of the head, and maxillofacial bone were alsoobtained with coronal and sagittal reformats. COMPARISON: none. FINDINGS: CT HEAD:The ventricles and cerebral sulci are normal in caliber and configuration.No hydrocephalus, midline shift or pathological extra-axial fluidcollection is present. The perimesencephalic cisterns are unremarkable. There is no acute intracranial hemorrhage or significant mass effect. Noparenchymal abnormality. The pedersen-white matter differentiation ispreserved. The mastoid air cells are clear. The calvarium and central skull base areunremarkable. CT MAXILLOFACIAL: Suspected bilateral nasal bone fracture. The left frontal processes of themaxilla are intact. Left periorbital and glabellar region soft tissue swelling is present. Theorbits, globes and other intraorbital structures are unremarkable. The maxilla and maxillary sinus mata are intact. There is a defect in theright lateral pterygoid plate annotated on image 50 of series 504 and image48 of coronal series 505, potentially an acute fracture. There was no otherevidence of fracture. [facility] CT MAXILLOFACIAL/MA NDIBLE WO CONTRAST 5 15:29:03 EXAM: CT HEAD WO CONTRAST, CT MAXILLOFACIAL/MANDIBLE WO CONTRAST HISTORY: Football injury TECHNIQUE: CT imaging of the head, and maxillofacial bone were alsoobtained with coronal and sagittal reformats. COMPARISON: none. FINDINGS: CT HEAD:The ventricles and cerebral sulci are normal in caliber and configuration.No hydrocephalus, midline shift or pathological extra-axial fluidcollection is present. The perimesencephalic cisterns are unremarkable. There is no acute intracranial hemorrhage or significant mass effect. Noparenchymal abnormality. The pedersen-white matter differentiation ispreserved. The mastoid air cells are clear. The calvarium and central skull base areunremarkable. CT MAXILLOFACIAL: Suspected bilateral nasal bone fracture. The left frontal processes of themaxilla are intact. Left periorbital and glabellar region soft tissue swelling is present. Theorbits, globes and other intraorbital structures are unremarkable. The maxilla and maxillary sinus mata are intact. There is a defect in theright lateral pterygoid plate annotated on image 50 of series 504 and image48 of coronal series 505, potentially an acute fracture. There was no otherevidence of fracture. [facility] CT FEMUR LEFT W CONTRAST 8 15:41:04 EXAM: CT FEMUR LEFT W CONTRAST HISTORY: 23 years-old Male; Provided indication: Soft tissue mass, thigh,vascular mass suspected . The left inner thigh progressively increasingmass at the site present for 5 years. TECHNIQUE: Contrast enhanced CT of the left femur was performed. Coronaland sagittal reformats were obtained. 100 mL of Isovue was administered. COMPARISON: Left femur radiograph 07/05/2023. MR left femur with and withoutcontrast 07/26/2023. FINDINGS: CT of the left femur with contrast demonstrates a heterogeneously enhancingfat-containin g intramuscular mass arising from the gracilis. The massapproximately measures 3.9 x 3.7 x 8.9 cm. Possible internal enhancingtubular structures are noted. There is no extension of the tumor beyond themuscular fascia. There is no suspicious inguinal lymphadenopathy. No acute fracture or dislocation. [id number] 17:20:04Ordered by an unspecified provider.[facility] 2023-07-05 22:32:07ORDERING PHYSICIAN: ZITA AGEE CLINICAL HISTORY: swelling left hand (dorsal lateral) TECHNIQUE: 3 views of the left hand TECHNICAL QUALITY: Diagnostic COMPARISON: None FINDINGS: The bones are normal in density. There is no fracture. There isno dislocation. The visualized joint spaces are maintained. There is noradiopaque foreign body or abnormal calcification. There is mild softtissue swelling of the hand.[facility] History and Physical Notes Date/Time Note Provider Source 2023-10-14 08:10:26 Images from the original note were not included. H and P: Reason for Visit / Chief Complaint: L inner thigh mass History of Present Illness: Sincere Donaldo is a 23 year old male with PMHx as below who presents for evaluation of L inner thigh mass that has been present for years. He was seen in [address] ordered back then (not in out system). Since, patient had developed pain at the site. It is constant and nagging. Lesion has also been increasing in size. Denies fever, chills, nausea, emesis, weight loss and neurovascular symptoms. He has not had biopsy of the lesion. He claims the mass has been there for 5 years and roughly the same size. We had him scheduled and he had to cancel so now we have rescheduled his surgery for today. A recent CT report is shown below. Past Medical History: None relevant to encounter Past Surgical History: None relevant to encounter Allergies: No Known Allergies Medications: Patient's Medications START taking these medications No medications on file CONTINUE taking these medications which have NOT CHANGED IBUPROFEN 800 MG TABLET Take 1 tablet by mouth every 8 (eight) hours as needed for Pain (scale 4-6). START taking Modified Medications as Prescribed No medications on file STOP taking these medications No medications on file Current Rx Current Outpatient Medications Medication Sig Dispense Refill ibuprofen 800 mg tablet Take 1 tablet by mouth every 8 (eight) hours as needed for Pain (scale 4-6). 20 tablet 0 No current facility-administered medications for this visit. Family History: No family history on file. Social History: Social History Socioeconomic History Marital status: Single Tobacco Use Smoking status: Every Day Types: Cigarettes, Cigars Smokeless tobacco: Never Substance and Sexual Activity Alcohol use: Not Currently Drug use: Never Review of Systems: Constitutional: negative Eyes: negative Ears: negative Mouth/Throat: negative Cardiovascular: negative Respiratory: negative Gastrointestinal: negative Genitourinary: negative Musculoskeletal: pain in L leg Integumentary: negative Neuro: negative Psych: negative Physical Exam: Vitals There were no vitals taken for this visit. General: alert and oriented, no apparent distress Eyes: extraocular movements intact, no scleral icterus HENT: normocephalic, atraumatic, no rhinorrhea CV: hemodynamically stable Resp: unlabored, no increased work of breathing, equal bilateral chest rise Abdomen: soft, non-tender, non-distended Neuro: unremarkable without focal findings Extremities/Musculoskeletal: moves extremities well, no edema. L thigh with palpable 8 cm x 5 cm mass. Non tender, rubbery consistency, no skin changes, does not seem to be attached to inferior planes and is mobile. No palpable inguinal lymphadenopathy. He has palpable pulses Psych: normal mood and affect, judgement intact Skin: skin color, texture and turgor normal, no rashes or lesions MRI from outside imaging facility 08/17: CT from [facility] from 10/01 EXAM: CT FEMUR LEFT W CONTRAST HISTORY: 23 years-old Male; Provided indication: Soft tissue mass, thigh, vascular mass suspected . The left inner thigh progressively increasing mass at the site present for 5 years. TECHNIQUE: Contrast enhanced CT of the left femur was performed. Coronal and sagittal reformats were obtained. 100 mL of Isovue was administered. COMPARISON: Left femur radiograph 07/05/2023. MR left femur with and without contrast 07/26/2023. FINDINGS: CT of the left femur with contrast demonstrates a heterogeneously enhancing fat-containing intramuscular mass arising from the gracilis. The mass approximately measures 3.9 x 3.7 x 8.9 cm. Possible internal enhancing tubular structures are noted. There is no extension of the tumor beyond the muscular fascia. There is no suspicious inguinal lymphadenopathy. No acute fracture or dislocation. IMPRESSION Heterogeneously enhancing intramuscular mass within the gracilis muscle. Differential considerations include vascular malformation versus atypical lipomatous tumor. Soft tissue sampling is recommended. Preliminary Report Dictated by Resident: Desi Jimenez I, Roberth Ruth MD., have reviewed this study and agree with the above report. Assessment: Sincere Donaldo is a 23 year old male who presents for evaluation of Left thigh mass. 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 Plan: Discussed the mass with the patient. He chose removal over observation as it is increasingly bothering him. We did sign consents in the clinic. I suspect this is a benign lesion. Plan for Surgery today. Pedro Montano [facility] - Health Notes Date/Time Note Provider Source 2024-03-31 10:27:21 Patient discharged to home. Patient given printed and verbal discharge instructions regarding diagnosis. Instructed to follow up with PCP. Patient verbalized understanding of instructions. Patient awake, alert, oriented, respirations even and unlabored, skin warm and dry, color appropriate for race. No adverse reaction to meds given in ER noted upon discharge. Discussed medications. Advised to seek medical attention for new/prolonged/worsening of symptoms, patient ambulated from unit with steady gait in no apparent distress. Ring RN [facility] 2024-03-31 08:30:00 Patient back in room. [facility] 2024-03-31 08:20:[address] [facility] 2024-03-31 07:59:44 Pt was grappling this morning at practice ~0630. Got head butted. Nose is bloody, left eye swollen. +LOC Ritchie RN [facility] 2024-03-31 07:44:00 Associated Order(s): Laceration Repair Images from the original note were not included. [facility] Emergency Department Note Patient Name: Ez Fulton Date of : 2000 23 year old male Treatment Room: [place] [address] Primary Care Physician: PATIENT DOES NOT HAVE A PCP Patient Escorted by: Family [5] Mode of Arrival: Personal means [1] EMS Treatment Prior to ED Arrival: MANAGER OF RECRUITING treatment: None Travel and Exposure Screening: Symptoms Does patient have any of these symptoms?: (not recorded) Exposure Screening Has patient had contact with someone with a communicable disease in the last month?: (not recorded) Diseases exposed to:: (not recorded) Is Patient ?: (not recorded) Exposure Date: (not recorded) Chief Complaint: Chief Complaint Patient presents with Other Jiu-jitstu incident History of Present Illness: Ez Fulton is a 23 year old male with head injury and facial/nose laceration after being head butted during [employer] match. Left periorbital tissue swelling. + loss of consciousness, briefly. Past Medical History/Immunizations: No past medical history on file. Tetanus received in last 5 years: Unknown Childhood immunizations: Up-to-date Allergies: No Known Allergies Past Social History: Tobacco Use Some Days; Types: Cigars Smokeless Tobacco: Never used smokeless tobacco. Alcohol Use Not Currently. Drug Use Never. Past Surgical History: Past Surgical History: Procedure Laterality Date LOWER EXTREMITY LESION EXCISION Left 10/14/2023 Surgeon: Angelica Montano MD; [place] [facility] [place] Review of Systems: Review of Systems HENT: Positive for facial swelling. Eyes: Negative for pain and visual disturbance. Gastrointestinal: Negative for nausea and vomiting. Skin: Positive for wound. Neurological: Positive for headaches. Negative for dizziness and facial asymmetry. Physical Exam: ED Triage Vitals [03/31/24 0800] Weight 90.7 kg (200 lb) Actual or estimated Estimated by patient/family report Height 1.727 m (5' 8") BP (!) 145/100 Pulse 92 Resp 18 Temp 36.9 ?C (98.4 ?F) Temp source Oral SpO2 100 % Measured on Room air Physical Exam Constitutional: General: He is not in acute distress. Appearance: He is well-developed. HENT: Head: Normocephalic. Nose: Comments: 2cm laceration to left aspect of nasal bridge. No septal hematoma. Eyes: Extraocular Movements: Extraocular movements intact. Pupils: Pupils are equal, round, and reactive to light. Comments: Moderate periorbital swelling to left with an abrasion to upper lid. No laceration. Cardiovascular: Rate and Rhythm: Normal rate. Pulmonary: Effort: Pulmonary effort is normal. Abdominal: General: There is no distension. Musculoskeletal: General: Normal range of motion. Cervical back: Normal range of motion. Skin: General: Skin is warm and dry. Neurological: Mental Status: He is alert and oriented to person, place, and time. Radiology: CT HEAD WO CONTRAST Final Result EXAM: CT HEAD WO CONTRAST, CT MAXILLOFACIAL/MANDIBLE WO CONTRAST HISTORY: Football injury TECHNIQUE: CT imaging of the head, and maxillofacial bone were also obtained with coronal and sagittal reformats. COMPARISON: none. FINDINGS: CT HEAD: The ventricles and cerebral sulci are normal in caliber and configuration. No hydrocephalus, midline shift or pathological extra-axial fluid collection is present. The perimesencephalic cisterns are unremarkable. There is no acute intracranial hemorrhage or significant mass effect. No parenchymal abnormality. The pedersen-white matter differentiation is preserved. The mastoid air cells are clear. The calvarium and central skull base are unremarkable. CT MAXILLOFACIAL: Suspected bilateral nasal bone fracture. The left frontal processes of the maxilla are intact. Left periorbital and glabellar region soft tissue swelling is present. The orbits, globes and other intraorbital structures are unremarkable. The maxilla and maxillary sinus mata are intact. There is a defect in the right lateral pterygoid plate annotated on image 50 of series 504 and image 48 of coronal series 505, potentially an acute fracture. There was no other evidence of fracture. IMPRESSION IMPRESSION: 1. No acute intracranial abnormality. 2. Questionable lateral pterygoid plate fracture. 3. Suspected bilateral nasal bone fracture with adjacent nasal and left periorbital soft tissue swelling. Preliminary Report Dictated by Resident: Thalia Harding I, Nilay Weiss MD., have reviewed this study and agree with the above report. CT MAXILLOFACIAL/MANDIBLE WO CONTRAST Final Result EXAM: CT HEAD WO CONTRAST, CT MAXILLOFACIAL/MANDIBLE WO CONTRAST HISTORY: Football injury TECHNIQUE: CT imaging of the head, and maxillofacial bone were also obtained with coronal and sagittal reformats. COMPARISON: none. FINDINGS: CT HEAD: The ventricles and cerebral sulci are normal in caliber and configuration. No hydrocephalus, midline shift or pathological extra-axial fluid collection is present. The perimesencephalic cisterns are unremarkable. There is no acute intracranial hemorrhage or significant mass effect. No parenchymal abnormality. The pedersen-white matter differentiation is preserved. The mastoid air cells are clear. The calvarium and central skull base are unremarkable. CT MAXILLOFACIAL: Suspected bilateral nasal bone fracture. The left frontal processes of the maxilla are intact. Left periorbital and glabellar region soft tissue swelling is present. The orbits, globes and other intraorbital structures are unremarkable. The maxilla and maxillary sinus mata are intact. There is a defect in the right lateral pterygoid plate annotated on image 50 of series 504 and image 48 of coronal series 505, potentially an acute fracture. There was no other evidence of fracture. IMPRESSION IMPRESSION: 1. No acute intracranial abnormality. 2. Questionable lateral pterygoid plate fracture. 3. Suspected bilateral nasal bone fracture with adjacent nasal and left periorbital soft tissue swelling. Preliminary Report Dictated by Resident: Thalia Harding I, Nilay Weiss MD., have reviewed this study and agree with the above report. Lab Results: Lab Results - No data to display EKG: If EKG completed, see Procedure Note. Orders and Treatments: Orders Placed This Encounter Procedures Laceration Repair CT HEAD WO CONTRAST CT MAXILLOFACIAL/MANDIBLE WO CONTRAST Orders Placed This Encounter Medications DISCONTD: morpHINE (4 mg/mL) injection 4 mg DISCONTD: ondansetron (ZOFRAN (PF)) injection 4 mg HYDROcodone-acetaminophen (NORCO) 10-325 mg tablet 1 tablet ondansetron (ZOFRAN-ODT) disintegrating tablet 4 mg dexamethasone (DECADRON PHOSPHATE) injection 10 mg naproxen 500 mg tablet First Provider Eval: ED Events None ED COURSE Diagnosis/Impression as of 03/31/24 1013 Acute head injury with loss of consciousness, initial encounter Laceration of nose, initial encounter Procedures: Laceration Repair Date/Time: 03/31/2024 10:06 AM Performed by: Beatriz Rizvi DO Authorized by: Beatriz Rizvi DO Consent: Consent obtained: Verbal Consent given by: Patient Risks discussed: Pain, poor cosmetic result, poor wound healing and infection [place] protocol: Imaging studies available: yes Patient identity confirmed: Verbally with patient Anesthesia: Anesthesia method: Nerve block Block location: Exterior ethmoid and infratrochlear nerve blocks Block needle gauge: 27 G Block anesthetic: Lidocaine 1% w/o epi Laceration details: Location: Face Face location: Nose Length (cm): 2 Pre-procedure details: Preparation: Patient was prepped and draped in usual sterile fashion Exploration: Contaminated: no Treatment: Area cleansed with: Chlorhexidine Amount of cleaning: Standard Skin repair: Repair method: Sutures Suture size: 6-0 Suture material: Prolene Suture technique: Simple interrupted Number of sutures: 2 Approximation: Approximation: Close Repair type: Repair type: Simple Post-procedure details: Dressing: Open (no dressing) Procedure completion: Tolerated MDM: Medical Decision Making Problems Addressed: Acute head injury with loss of consciousness, initial encounter: acute illness or injury Details: Concussion discussed. Second impact syndrome discussed. Laceration repair performed. Vaseline. No bathing. Showering only. Avoid contact sports for at least 2 weeks after resolution of symptoms. Return precautions given if symptoms worsen as documented in the discharge instructions. Laceration of nose, initial encounter: acute illness or injury Amount and/or Complexity of Data Reviewed Radiology: ordered. Risk Prescription drug management. Flowsheet Documentation: Scoring Tools: No data recorded Disposition/Condition: ED Disposition ED Disposition Discharge Condition Stable Comment -- Discharge Medications: Patient's Medications START taking these medications NAPROXEN 500 MG TABLET Take 1 tablet by mouth in the morning and 1 tablet in the evening. Take with meals. CONTINUE taking these medications which have NOT CHANGED IBUPROFEN 800 MG TABLET Take 1 tablet by mouth every 8 (eight) hours as needed for Pain (scale 4-6). START taking Modified Medications as Prescribed No medications on file STOP taking these medications No medications on file Follow-up: Contact information for follow-up [facility] Specialty: Internal Medicine [address], [address] [facility] [address] Instructions: for follow up of your emergency visit. [facility] Specialty: Emergency Medicine [address] [address] Instructions: If symptoms worsen as documented in the discharge Electronically signed by: Beatriz Rizvi DO 03/31/24 1013 [facility] 2023-10-23 21:37:53 Pt given printed and verbal discharge instructions regarding pain at surgical incision Prescriptions provided Discussed antibiotic therapy and to take until all completed unless adverse reaction occurs - if occurs, discontinue medication and follow up with pcp/seek medical attention Pt verbalized understanding of instructions, pt awake alert oriented, resp reg unlabored, skin w/d, color appropriate for race, moves all ext well,pt encouraged to follow up with pcp Advised to seek medical attention for new/prolonged/worsening of symptoms No adverse reaction to meds given in ER noted upon discharge Awake, alert oriented, resp reg unlabored, skin w/d, pt leaving amb with steady gait, in no apparent distress [facility] 2023-10-23 20:51:44 Pt arrived with c/o post-op pain from lesion excision. Pt is c/o pain while walking, "feeling raw", and ineffective pain medications. Incision site is clean and intact. Iman Rosas RN [facility] 2023-10-23 15:26:50 Images from the original note were not included. Patient notified of results/recommendations, understanding was verbalized via teach back. [employer] message also sent. Alena Masters RN [facility] 2023-10-23 14:47:14 Duplicate encounter. Message has been forwarded to provider for review. See encounter 10/23/23. Alena Masters RN [facility] 2023-10-23 14:46:[address] Montano at this time. Alena Masters RN [facility] 2023-10-23 14:31:02 Pt had Sx on 10/13 and is in extreme pain the area incision is swollen and red. Please Assist Lucas Medrano [facility] 2023-10-23 13:07:07 Images from the original note were not included. Alena Masters RN [facility] 2023-10-23 11:04:40 Images from the original note were not included. Patient s/p lower extremity lesion excision. States "skin feels like it is pulling" in the area of the levi. States there are two areas that are red. Denies any swelling or fever. Patient states he has been taking tramadol every 6 / 7 hours for pain, but he does not feel like this helps with the discomfort. Patient encouraged to alternate ibuprofen as needed with tramadol for better pain control. Patient to upload picture of incision site to [employer] for review. Will route to provider for notification/ recommendations. Alena Masters RN [facility] 2023-10-23 09:44:10 Pt calling stating the levi that were placed during his surgery with Dr. Montano on 10/14/23 are very tight and are causing him a large amount of pain. Pt has PO scheduled for 10/27, please advise if pt needs to be seen sooner. Chrissy Gibson [facility] 2023-10-14 09:18:26 Images from the original note were not included. OPERATIVE NOTE Pre Procedure Diagnosis: left thigh mass Post Procedure Diagnosis: same Indication for procedure: left thigh mass excision Staff: Surgeon: Pedro Montano MD Resident: MD Ronnie Tolliver MD Procedure: Radical excision of left thigh mass Anesthesia: General - LMA Complications: none \\ Drains: none EBL: 10 mL Findings: 10 x 5 x 4 cm vascular mass within gracilis muscle, stitch waller superior Surgery in Detail: The patient was brought into the operative room and placed supine on the operating table. General anesthesia was induced and LMA was performed by anesthesia. Preoperative antibiotics were administered. The patient was prepped and draped in the usual sterile fashion with the left leg circumferentially prepped and the left foot covered. A surgical timeout was performed, confirming the correct patient, procedure and laterality. Attention was then turned to the left thigh. After injection of local anesthetic, a longitudinal incision approximately 14 cm long was made over the mass with 15 blade scalpel. Electrocautery dissection was performed in the tissue down to muscular fascia until the mass was exposed, taking care to identify and protect the saphenous vein. Individual vessels were clipped and bleeding was controlled during dissection. The mass was freed from surrounding tissue. It appeared vascular and was approximately 10 cm long and 5 cm wide. Next, the gracilis muscle was transected along the inferior edge of the mass. The same was done to the gracilis muscle along the superior edge. The mass was then removed and a vicryl stitch was placed superiorly. The mass was passed off and sent for permanent pathological exam. The wound was thoroughly irrigated and hemostasis achieved with electrocautery. Local anesthetic was injected around the wound. The dermis was closed with multiple 3-0 Vicryl stitches, and skin was closed with levi. The wound was dressed with 4x4 gauze and tegaderm. The patient tolerated the procedure well and was taken to the recovery room postoperatively. Dr. Montano was present and scrubbed for the entire procedure. Renee Castro MD [facility] General Surgery 10/14/2023 10:10 AM I was present for and supervised the entire procedure(s). [facility] 2023-10-07 11:17:13 Paula already did auth for procedure, just need to call and collect his payment before surgery date. Thank you Magdalena Sandhu [facility] 2023-10-07 10:06:17 Patient confirmed surgery date of 10/14/23, Dr. Montano made aware and procedure is now posted for 10/14/23. Janneth Martins RN [facility] 2023-10-04 16:01:42 Images from the original note were not included. Your procedure is at [facility] on 10/14/23. The address is [address] [place] [address], [id number]. [facility] nursing staff will call you the workday before your procedure to let you know what time to arrive.On the day of your procedure, please go inside that door and check in at the desk. Please note: You may not travel home alone and that includes in a taxi or by bus. We must speak to your Responsible Adult (who will be picking you up) the morning of your procedure, before the start of your procedure. This person must be an adult over the age of 18 years of age. Do not eat any solid food after midnight the night before surgery. You may have sips of clear liquids such as water, gatorade, and sprite up until two hours before your scheduled procedure. You may take your medications with a sip of water as directed by physician. Anticoagulants will be per physician guidance. Medication Note(s)/Instructions: N/A. The patient was educated on medication. Teach-back method repeated and confirmed. There are no pre-op orders for labs or further testing at this time. Understanding was verbalized, with no questions or concerns at this time. [facility] 2023-10-04 14:12:36 Do not show a sx admission date to confirm with patient. Please review. Ileana Fair Pearce 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 Please advise, Thank you. Anthony Ramirez [facility] 2023-10-01 09:24:43 Patient informed that he also needs to have a CT preformed prior to his surgery. Patient given the number to call radiology to schedule. T aJnneth Martins RN [facility] 2023-09-30 10:40:06 Requesting patient to have his procedure preformed on 10/14/23. Patient states his boss is out of the office today and that he cannot ask her. He had already gotten approval for 10/08/23, he requests written communication to his employer regarding the change for better chances of having his employer give him the time off. Letter written for patient. Patient aware that he needs to call the office at [phone] to confirm that he is okay with surgery date of 10/14/23 on Saturday10/02/23. [facility] 2023-08-19 08:00:00 Addended by: ANGELICA MONTANO MD on: 10/01/2023 07:41 AM Modules accepted: Orders [facility] 2023-08-02 15:52:17 Patient notified of all. No further needs voiced. [facility] 2023-08-02 15:28:[address] Please let pt know Dr Montano (surgeon) recommends an office visit rather than IR biopsy. This has been scheduled. Let me know if you have any questions or concerns. Zita Agee MD [facility] 2023-08-01 17:05:21 I called to review MRI results with Ez Fulton. He would like biopsy. I plan on IR biopsy but will also discuss with surgeon Dr Montano who saw patient 2 years ago for this mass. Zita Agee MD [facility] 2023-08-01 16:19:53 Patient requesting MD review/recommendations for MRI results. Please review and advise. [facility] 2023-07-23 15:01:28 Signed order and demographics faxed on 07/23/2023 [facility] 2023-07-23 11:19:16 See written order, thanks [facility] 2023-07-19 10:42:29 Patient requesting to complete MRI at [facility]. Please provide with signed order and will fax to [phone] [facility]
[2024-09-09] MEDS ORDERED: LIDOCAINE 2% W/EPI 1:200,000 MPF 20 ML VIAL IM ONE (12:38)
[2024-09-09] MEDS ORDERED: TDAP (DIPHTH,PERTUSS(ACELL),TET VAC) 0.5 ML VIAL IMVAC ONE (12:38)
[2024-09-09] MEDS ORDERED: KETOROLAC 30 MG/ML INJ ONE (12:38)
--- NOTE | 2024-09-09 13:20 | EDPHYS ---
Physician Documentation [facility] Name: Sincere Donaldo Age: 24 yrs Sex: Male : 2000 Arrival Date: 09/09/2024 Time: 12:24 Bed 18 Private MD: ED Physician Nino Smith HPI: 09/09 12:43 This 24 yrs old Male presents to ER via EMS with complaints of Laceration To rt Leg. 12:43 Patient presents to the ED with an injury to the left gilliland. He was running away from a rt dog, when he jumped a fence causing a laceration, , the fence hit his legdenies other injury, acute complaints, symptoms are mild severity, no other aggravating or elevating factors.. Historical: - Allergies: 13:25 No Known Allergies; me1 - Home Meds: 12:31 None [Active]; me1 - PMHx: 12:31 mass to left medial thigh; torn achilles- left; me1 - PSHx: 12:31 repair of left achilles; excision of mass to left medial thigh; me1 - Immunization history:: Adult Immunizations unknown, Last tetanus immunization: unknown. - Infectious Disease History:: Denies. - Social history:: Smoking status: Reported history of juuling and/or vaping. - Family history:: not pertinent. ROS: 12:43 Constitutional: Negative for fever, chills, and weight loss, Cardiovascular: Negative rt for chest pain, palpitations, and edema, Respiratory: Negative for shortness of breath, cough, wheezing, and pleuritic chest pain, Abdomen/GI: Negative for abdominal pain, nausea, vomiting, diarrhea, and constipation, Neuro: Negative for headache, weakness, numbness, tingling, and seizure, 12:43 MS/extremity: Positive for laceration, pain, Exam: 12:43 Constitutional: This is a well developed, well nourished patient who is awake, alert, rt and in no acute distress. Head/Face: Normocephalic, atraumatic. Chest/axilla: Normal chest wall appearance and motion. Nontender with no deformity. No lesions are appreciated. Cardiovascular: Regular rate and rhythm with a normal S1 and S2. No gallops, murmurs, or rubs. Normal PMI, no JVD. No pulse deficits. Respiratory: Lungs have equal breath sounds bilaterally, clear to auscultation and percussion. No rales, rhonchi or wheezes noted. No increased work of breathing, no retractions or nasal flaring. Abdomen/GI: Soft, non-tender, with normal bowel sounds. No distension or tympany. No guarding or rebound. No evidence of tenderness throughout. Neuro: Awake and alert, GCS 15, oriented to person, place, time, and situation. Cranial nerves II-XII grossly intact. Motor strength 5/5 in all extremities. Sensory grossly intact. Cerebellar exam normal. Normal gait. 12:43 Musculoskeletal/extremity: 4 cm laceration through dermis to subcutaneous fat noted on the left gilliland, fascia is not involved, no foreign bodies identified, no deformities noted.. Vital Signs: 12:27 BP 140 / 109; Pulse 86; Resp 18; Temp 98.4; Pulse Ox 100% ; Weight 85.73 kg; Height 5 me1 ft. 8 in. ; Pain 7/10; 13:25 BP 128 / 82; Pulse 70; Resp 16; Temp 98.3; Pulse Ox 100% ; me1 12:27 Body Mass Index 28.74 (85.73 kg, 172.72 cm) me1 12:27 Pain Scale: Adult me1 Laceration: 13:22 Wound Repair of 5cm ( 2.0in ) subcutaneous laceration to left gilliland. Linear shaped.. rt Distal neuro/vascular/tendon intact. Anesthesia: Wound infiltrated with 2 mls of 1% lidocaine w/ Epi. Wound prep: Copious irrigation. Skin closed with 5 3-0 Prolene using simple sutures and sterile technique. Dressed with 4x4's. Patient tolerated well. MDM: 12:26 Medical Screening Exam initiated rt 13:22 Differential diagnosis: Laceration. Data reviewed: vital signs, nurses notes. I rt considered the following discharge prescriptions or medication management in the emergency department Medications were administered in the Emergency Department. See MAR. Test considered but Not performed: Labs: Low suspicion for foreign body, fracture, x-rays are not indicated. Counseling: I had a detailed discussion with the patient and/or guardian regarding the historical points, exam findings, and any diagnostic results supporting the discharge/admit diagnosis, the need for outpatient follow up, to return to the emergency department if symptoms worsen or persist or if there are any questions or concerns that arise at home. Response to treatment: the patient's symptoms have markedly improved after treatment. 09/09 12:27 Order name: Dressing - Wound; Complete Time: 12:48 rt 09/09 12:27 Order name: Gloves, Sterile; Complete Time: 12:48 rt 09/09 12:27 Order name: Setup Suture Tray; Complete Time: 12:48 rt Administered Medications: 12:48 Drug: Ketorolac IVP 15 mg IVP once Route: IVP; Site: left antecubital; me1 13:12 Follow up: Response: No adverse reaction; Pain is decreased me1 12:48 Drug: Boostrix Tdap IM 0.5 ml IM once; as a single dose Route: IM; Site: right deltoid; me1 13:12 Follow up: Response: No adverse reaction me1 13:12 Drug: Lidocaine-Epinephrine Infiltration -1%: (1:100,000) 20 ml 20 ml Infiltration me1 once; to bedside {Note: Administered by Dr Smith.} Volume: 20 ml; Route: Infiltration; Disposition Summary: 09/09/24 13:20 Discharge Ordered Notes: Location: Home rt Problem: new rt Symptoms: have improved rt Condition: Stable rt Diagnosis - Laceration to left lower leg rt Followup: rt - With: Private Physician - When: 10 - 14 days - Reason: Staple/Suture removal Discharge Instructions: - Discharge Summary Sheet rt - Laceration Care, Adult rt Forms: - Work release form rt - Medication Reconciliation Form rt - Antibiotic Education rt - Prescription Opioid Use rt - Patient Portal Instructions rt - Leadership Thank You Letter rt Signatures: Nino Smith MD MD rt Yvette Adams, RN RN me1
--- NOTE | 2024-09-09 13:20 | ER ---
Nurse's Notes [facility] Name: Ez Fulton Age: 24 yrs Sex: Male : 2000 Arrival Date: 09/09/2024 Time: 12:24 Bed 18 Private MD: Diagnosis: Laceration to left lower leg Presentation: 09/09 12:27 Chief complaint: EMS states: toned out for injury to leg after being chased by a dog. 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 [place] [employer] on scene. Coronavirus screen: Vaccine status: Patient reports being unvaccinated. Ebola Screen: No symptoms or risks identified at this time. Initial Sepsis Screen: Does the patient meet any 2 criteria? No. Patient's initial sepsis screen is negative. Does the patient have a suspected source of infection? No. Patient's initial sepsis screen is negative. Risk Assessment: Do you want to hurt yourself or someone else? Patient reports no desire to harm self or others. Onset of symptoms was September 09, 2024 at 11:45. 12:27 Method Of Arrival: EMS: [facility] [place] 12:27 Acuity: EVER 4 me1 Triage Assessment: 12:33 General: Appears uncomfortable, well groomed, well developed, well nourished, Behavior me1 is cooperative, appropriate for age, anxious, Reports chased by a dog and jumped a chain link fence catching his left lower leg on the fence. Pain: Complains of pain in left gilliland Pain does not radiate. Pain currently is 7 out of 10 on a pain scale. Quality of pain is described as stinging, Pain began suddenly, Is continuous. EENT: No signs and/or symptoms were reported regarding the EENT system. Neuro: Level of Consciousness is awake, alert, obeys commands, Oriented to person, place, time, situation, Appropriate for age. Cardiovascular: Patient's skin is warm and dry. Respiratory: Airway is patent Respiratory effort is even, unlabored, Respiratory pattern is regular, symmetrical. GI: No signs and/or symptoms were reported involving the gastrointestinal system. : No signs and/or symptoms were reported regarding the genitourinary system. Derm: Skin is intact, is healthy with good turgor, Skin is pink, warm \T\ dry. Musculoskeletal: No signs and/or symptoms reported regarding the musculoskeletal system. Historical: - Allergies: 13:25 No Known Allergies; me1 - Home Meds: 12:31 None [Active]; me1 - PMHx: 12:31 mass to left medial thigh; torn achilles- left; me1 - PSHx: 12:31 repair of left achilles; excision of mass to left medial thigh; me1 - Immunization history:: Adult Immunizations unknown, Last tetanus immunization: unknown. - Infectious Disease History:: Denies. - Social history:: Smoking status: Reported history of juuling and/or vaping. - Family history:: not pertinent. Screenin:34 [facility] ED Fall Risk Assessment (Adult) History of falling in the last 3 months, me1 including since admission No falls in past 3 months (0 pts) Confusion or Disorientation No (0 pts) Intoxicated or Sedated No (0 pts) Impaired Gait No (0 pts) Mobility Assist Device Used No (0 pt) Altered Elimination No (0 pt) Score/Fall Risk Level 0 - 2 = Low Risk Maintained a safe environment, Provided non-skid footwear, Hourly rounding (assess needs \T\ fall precautionary measures) done. Abuse screen: Denies threats or abuse. Nutritional screening: No deficits noted. Tuberculosis screening: No symptoms or risk factors identified. Assessment: 12:34 General: See triage assessment. me1 13:27 Reassessment: No changes from previously documented assessment. Patient is alert, me1 oriented x 3, equal unlabored respirations, skin warm/dry/pink. Patient states feeling better. General:. Vital Signs: 12:27 BP 140 / 109; Pulse 86; Resp 18; Temp 98.4; Pulse Ox 100% ; Weight 85.73 kg; Height 5 me1 ft. 8 in. ; Pain 7/10; 13:25 BP 128 / 82; Pulse 70; Resp 16; Temp 98.3; Pulse Ox 100% ; me1 12:27 Body Mass Index 28.74 (85.73 kg, 172.72 cm) me1 12:27 Pain Scale: Adult md1 ED Course: 12:25 Patient arrived in ED. me1 12:26 Nino Smith MD is Attending Physician. rt 12:30 Triage completed. me1 12:33 Arm band placed on Patient placed in an exam room. me1 12:34 Patient has correct armband on for positive identification. Bed in low position. Call me1 light in reach. Side rails up X2. Provided Education on: POC. Verbalized understanding.. Client placed on continuous cardiac and pulse oximetry monitoring. NIBP monitoring applied. Pulse ox on. NIBP on. 12:34 No provider procedures requiring assistance completed. me1 12:35 Yvette Adams, RN is Primary Nurse. me1 12:48 Maintain EMS IV. Dressing intact. Good blood return noted. Site clean \T\ dry. Gauge \T\ me 1 site: 20g LAC. Flushed with 10 mL NS. 13:37 IV discontinued, intact, bleeding controlled, No redness/swelling at site. Pressure me1 dressing applied. Administered Medications: 12:48 Drug: Ketorolac IVP 15 mg IVP once Route: IVP; Site: left antecubital; me1 13:12 Follow up: Response: No adverse reaction; Pain is decreased me1 12:48 Drug: Boostrix Tdap IM 0.5 ml IM once; as a single dose Route: IM; Site: right deltoid; me1 13:12 Follow up: Response: No adverse reaction me1 13:12 Drug: Lidocaine-Epinephrine Infiltration -1%: (1:100,000) 20 ml 20 ml Infiltration me1 once; to bedside {Note: Administered by Dr Smith.} Volume: 20 ml; Route: Infiltration; Medication: 13:36 Vaccine Information Statement (VIS) provided today. Questions and/or concerns me1 addressed. VIS edition date: December 30, 2020. Outcome: 13:20 Discharge ordered by . rt 13:37 Discharged to home ambulatory, with family, me1 13:37 Condition: stable 13:37 Discharge instructions given to patient, family, Instructed on discharge instructions, follow up and referral plans. medication usage, Demonstrated understanding of instructions, follow-up care, medications, 13:37 Patient left the ED. me1 Signatures: Nino Smith MD MD rt Yvette Adams, RN RN me1 Corrections: (The following items were deleted from the chart) 12:30 12:25 Chief complaint: me1 me1
[2024-09-09 13:42] VITALS: O2SAT 100
[2024-09-09 13:43] VITALS: BP 128/82; TEMP 98.3
== END 2024-09-09 13:37 | disposition home or self-care (01) ==
LOC: ER 12:24
DX: S81.812A Laceration without foreign body, left lower leg, initial encounter (principal); W26.8XXA Contact with other sharp object(s), not elsewhere classified, initial encounter
CPT/HCPCS: 90715

== ENCOUNTER 2024-09-17 04:18 | Emergency (ER) | payer SELFPAY ==
--- OUTSIDE RECORDS SUMMARY | 2024-09-17 04:22 | XMS REPORT | Continuity of Care Document ---
Author Name Unknown Address [address] [place] [address] [facility] Address [address] [place] [address] Care Team Providers Care Chemist Food Name Role Phone No MD, Pcp Primary Care Physician Unavailab ANGELICA Hunt Attending Clinician Unavail able Doctor Unassigned, [place] Attending Clinician U BEATRIZ Ryan Attending Clinician Unavailable BEATRIZ RIZVI Attending Clinician Unavailable Beatriz Rizvi DO Attending Clinician [phone] Doctor Unassigned, [place] Attending Clinician U Angelica Martinez MD Attending Clinician ASHELY AGARWAL Attending Clinician Unavaila Ashely Busch Attending Clinician [phone] Zita Agee MD Attending Clinician Ebony Singh MD Attending Clinician [phone] ZITA AGEE Attending Clinician Candice Sumi Aguayo APRN Attending Clinician [phone] EBONY SINGH Attending Clinician Unav ailTODD Sanchez Attending Clinician Unavailable Todd May Attending Clinician [phone] ANGELICA MONTANO Admitting Clinician Unavail able BEATRIZ RIZVI Admitting Clinician Unavailable Charmaine MALLORY, Angelica German Admitting Clinician TODD PEREIRA Admitting Clinician Unavailable Payers Payer Name Policy Type Policy Number Effective Date Expirati on Date Source [facility] [id number] 2022 00:00:00 [facility] [id number] 2022 00:00:00 2022 00:00:00 Problems Condition Name Condition Details Condition Category Status Onset Date Resolution Date Last Treatment Date Treating Clinician Comments Source Obesity (BMI 30-39.9) Obesity (BMI 30-39.9) Disease Active 5-20 00:00: 00 [facility] Acute left ankle pain Acute left ankle pain Disease Active 7-13 00:00: 00 [facility] Complete rupture of left Achilles tendon Complete rupture of left Achilles tendon Disease Active 7-11 00:00: 00 [facility] Mass of left thigh Mass of left thigh Disease Active 1-27 00:00: 00 [facility] Allergies, Adverse Reactions, Alerts Allergy Name Allergy Type Status Severity Reaction(s) Onset Date Inactive Date Treating Clinician Comments Source NO KNOWN ALLERGIE S Drug Class Active [facility] Social History Social Habit Start Date Stop Date Quantity Comments Source [facility] of tobacco use Cigar Smoker [facility] Alcoholic beverage intake 2023-08-29 00:00:00 2023-08-29 00:00:00 Ex-drinker (finding) [facility] Tobacco use and exposure 2023-08-29 00:00:00 2023-08-29 00:00:00 Smokeless tobacco non-user [facility] Alcohol intake 2023-07-06 00:00:00 2023-07-06 00:00:00 Ex-drinker (finding) [facility] History of Social function 2023-07-05 00:00:00 2023-07-05 00:00:00 [facility] Exposure to SARS-CoV-2 (event) 2022-07-01 00:00:00 2022-07-11 08:28:00 Not sure [facility] Sex assigned at 1999 00:00:00 2000 00:00:00 [facility] Smoking Status Start Date Stop Date Source Tobacco smoking consumption unknown [facility] Occasional tobacco smoker 2023-08-29 00:00:00 [facility] Smokes tobacco daily 2023-07-05 00:00:00 [facility] Never smoked tobacco [facility] Medications Ordered Medication Name Filled Medication Name Start Date Stop Date Current Medication? Ordering Clinician Indication Dosage Frequency Signature (SIG) Comments Components Source dexamethaso ne sod phos PF injection 10 mg 2023-05 17:15: 00 03-31 16:24 :00 No 10mg 10 mg, Oral, ONCE, 1 dose, On Sat03/31/24 at 1115, Routine [facility] ondansetron (ZOFRAN-ODT ) disintegrat ing tablet 4 mg 2023-05 15:30: 00 03-31 14:31 :00 No 4mg 4 mg, Oral, ONCE, 1 dose, On Sat03/31/24 at 0930, Routine [facility] HYDROcodone -acetaminop hen (NORCO) 10-325 mg tablet 1 tablet 2023-05 15:30: 00 03-31 14:31 :00 No 1{tbl} 1 tablet, Oral, ONCE NOW, 1 dose, On Sat03/31/24 at 0930, Routine [facility] naproxen 500 mg tablet 2023-05 00:00: 00 Yes [id number] 500mg Take 1 tablet by mouth in the morning and 1 tablet in the evening. Take with meals. [facility] HYDROcodone -acetaminop hen (NORCO 5) 5-325 mg tablet 1 tablet 10-23 03:15: 00 10-23 02:35 :00 No 1{tbl} 1 tablet, Oral, ONCE, 1 dose, On Sat10/23/23 at 2215, PATRICIO [facility] cephALEXin 500 mg tablet 10-22 00:00: 00 10-30 04:59 :00 No [id number] 500mg Take 1 tablet by mouth in the morning and 1 tablet at noon and 1 tablet in the evening. Do all this for 7 days. [facility] HYDROcodone -acetaminop hen (NORCO 5) 5-325 mg tablet 1 tablet 10-13 15:15: 00 10-13 15:59 :00 No 1{tbl} 1 tablet, Oral, ONCE, 1 dose, On Sat10/14/23 at 1015, Routine, PACU [facility] traMADoL (ULTRAM) tablet 50 mg 10-13 15:11: 29 10-13 21:22 :13 No 50mg [facility] acetaminoph en (TYLENOL) tablet 650 mg 10-13 15:11: 29 10-13 21:22 :13 No 650mg [facility] FENTanyl PF (SUBLIMAZE (PF)) injection 25 mcg 10-13 15:11: 26 10-13 21:22 :13 No 25ug 25 mcg, Slow IV Push, Q5MIN PRN, 4 doses, Starting on Sat10/14/23 at 1011, Until Sat10/14/23 at 1622, Routine, Pain (scale 4-6), PACU [facility] NaCl 0.9% (NS) injection 10-13 14:20: 00 10-13 15:17 :22 No PRN, Starting on Sat10/14/23 at 0920, Until Sat10/14/23 at 1017, Routine, Intra-op [facility] bupivacaine (preserv free) (SENSORCAIN E MPF) 0.25 % (2.5 mg/mL) injection 10-13 14:18: 00 10-13 15:17 :22 No PRN, Starting on Sat10/14/23 at 0918, Until Sat10/14/23 at 1017, Routine, Intra-op [facility] lactated ringers IV infusion 1,000 mL 10-13 13:15: 00 10-13 13:14 :00 No 1000mL at 42 mL/hr, 1,000 mL, IV Infusion, ONCE, 1 dose, On Sat10/14/23 at 0815, Routine, DSU Pre-op [facility] traMADoL 50 mg tablet 10-13 00:00: 00 10-21 04:59 :00 No [id number] 50mg Take 1 tablet by mouth every 6 (six) hours as needed for Pain (scale 4-6) or Pain (scale 7-10) for up to 7 days. Indication s: acute pain [facility] iopamidol (ISOVUE 370-500 mL) injection 100 mL 10-01 13:29: 00 10-01 13:35 :00 No [id number] 100mL 100 mL, Intravenou s, ONCE, 1 dose, On Sat10/02/23 at 0845, Routine [facility] traMADol (Ultram) 50 MG tablet 12-31 00:00: 00 Yes [id number] 100mg Q6H Take 2 tablets (100 mg total) by mouth every 6 (six) hours if needed for moderate pain. [facility] HYDROcodone -acetaminop hen ([place]) 10-325 MG tablet 12-31 00:00: 00 Yes [id number] 1{tbl} Take 1 tablet by mouth every 4 (four) hours if needed for severe pain. [facility] ibuprofen 800 mg tablet 2-15 00:00: 00 Yes [id number] 800mg Take 1 tablet by mouth every 8 (eight) hours as needed for Pain (scale 4-6). [facility] No known medications 06-22 18:10: 03 No [facility] Immunizations Ordered Immunization Name Filled Immunization Name [...] Completed Varicella (varivax)(chicken pox) 2003-02-01 00:00:00 Completed [facility] Hep B, Adol or Pedi Dosage 2001-10-27 [...] 00:00:00 Completed DTaP, Unspecified Formulation Unknown Completed [facility] TDAP Unknown Completed [facility] Meningococcal Polysaccharide (groups A, C, Y and W-135) conjugate vaccine (MCV4P) Unknown Completed [facility] Varicella (varivax)(chicken pox) Unknown Completed [facility] IPV Unknown Completed [facility] MMR Unknown Completed [facility] HPV Unknown Completed [facility] HIB 4 Dose Schedule Unknown Completed [facility] Hep B, Adol or Pedi Dosage Unknown Completed [facility] HEPATITIS A Unknown Completed [facility] DTaP, Unspecified Formulation Unknown Completed [facility] Varicella (varivax)(chicken pox) Unknown Completed [facility] TDAP Unknown Completed [facility] IPV Unknown Completed [facility] MMR Unknown Completed [facility] Meningococcal Polysaccharide (groups A, C, Y and W-135) conjugate vaccine (MCV4P) Unknown Completed [facility] HPV Unknown Completed [facility] Varicella (varivax)(chicken pox) Unknown Completed [facility] HIB 4 Dose Schedule Unknown Completed [facility] Hep B, Adol or Pedi Dosage Unknown Completed [facility] HEPATITIS A Unknown Completed [facility] DTaP, Unspecified Formulation Unknown Completed [facility] Varicella (varivax)(chicken pox) Unknown Completed [facility] TDAP Unknown Completed [facility] TDAP Unknown Completed [facility] IPV Unknown Completed [facility] MMR Unknown Completed [facility] Meningococcal Polysaccharide (groups A, C, Y and W-135) conjugate vaccine (MCV4P) Unknown Completed [facility] HPV Unknown Completed [facility] IPV Unknown Completed [facility] HIB 4 Dose Schedule Unknown Completed [facility] Hep B, Adol or Pedi Dosage Unknown Completed [facility] HEPATITIS A Unknown Completed [facility] DTaP, Unspecified Formulation Unknown Completed [facility] MMR Unknown Completed [facility] Meningococcal Polysaccharide (groups A, C, Y and W-135) conjugate vaccine (MCV4P) Unknown Completed [facility] HPV Unknown Completed [facility] HIB 4 Dose Schedule Unknown Completed [facility] Hep B, Adol or Pedi Dosage Unknown Completed [facility] HEPATITIS A Unknown Completed [facility] DTaP, Unspecified Formulation Unknown Completed [facility] TDAP Unknown Completed [facility] Meningococcal Polysaccharide (groups A, C, Y and W-135) conjugate vaccine (MCV4P) Unknown Completed [facility] Varicella (varivax)(chicken pox) Unknown Completed [facility] IPV Unknown Completed [facility] MMR Unknown Completed [facility] HPV Unknown Completed [facility] HIB 4 Dose Schedule Unknown Completed [facility] Hep B, Adol or Pedi Dosage Unknown Completed [facility] HEPATITIS A Unknown Completed [facility] DTaP, Unspecified Formulation Unknown Completed [facility] Varicella (varivax)(chicken pox) Unknown Completed [facility] TDAP Unknown Completed [facility] IPV Unknown Completed [facility] MMR Unknown Completed [facility] Meningococcal Polysaccharide (groups A, C, Y and W-135) conjugate vaccine (MCV4P) Unknown Completed [facility] HPV Unknown Completed [facility] HIB 4 Dose Schedule Unknown Completed [facility] Hep B, Adol or Pedi Dosage Unknown Completed [facility] HEPATITIS A Unknown Completed [facility] DTaP, Unspecified Formulation Unknown Completed [facility] Varicella (varivax)(chicken pox) Unknown Completed [facility] TDAP Unknown Completed [facility] IPV Unknown Completed [facility] MMR Unknown Completed [facility] Meningococcal Polysaccharide (groups A, C, Y and W-135) conjugate vaccine (MCV4P) Unknown Completed [facility] HPV Unknown Completed [facility] HIB 4 Dose Schedule Unknown Completed [facility] Hep B, Adol or Pedi Dosage Unknown Completed [facility] HEPATITIS A Unknown Completed [facility] DTaP, Unspecified Formulation Unknown Completed [facility] Varicella (varivax)(chicken pox) Unknown Completed [facility] TDAP Unknown Completed [facility] IPV Unknown Completed [facility] MMR Unknown Completed [facility] Meningococcal Polysaccharide (groups A, C, Y and W-135) conjugate vaccine (MCV4P) Unknown Completed [facility] HPV Unknown Completed [facility] HIB 4 Dose Schedule Unknown Completed [facility] Hep B, Adol or Pedi Dosage Unknown Completed [facility] HEPATITIS A Unknown Completed [facility] DTaP, Unspecified Formulation Unknown Completed [facility] Varicella (varivax)(chicken pox) Unknown Completed [facility] TDAP Unknown Completed [facility] IPV Unknown Completed [facility] MMR Unknown Completed [facility] Meningococcal Polysaccharide (groups A, C, Y and W-135) conjugate vaccine (MCV4P) Unknown Completed [facility] HPV Unknown Completed [facility] HIB 4 Dose Schedule Unknown Completed [facility] Hep B, Adol or Pedi Dosage Unknown Completed [facility] HEPATITIS A Unknown Completed [facility] DTaP, Unspecified Formulation Unknown Completed [facility] Varicella (varivax)(chicken pox) Unknown Completed [facility] TDAP Unknown Completed [facility] IPV Unknown Completed [facility] MMR Unknown Completed [facility] Meningococcal Polysaccharide (groups A, C, Y and W-135) conjugate vaccine (MCV4P) Unknown Completed [facility] HPV Unknown Completed [facility] HIB 4 Dose Schedule Unknown Completed [facility] Hep B, Adol or Pedi Dosage Unknown Completed [facility] HEPATITIS A Unknown Completed [facility] DTaP, Unspecified Formulation Unknown Completed [facility] Varicella (varivax)(chicken pox) Unknown Completed [facility] TDAP Unknown Completed [facility] IPV Unknown Completed [facility] MMR Unknown Completed [facility] Meningococcal Polysaccharide (groups A, C, Y and W-135) conjugate vaccine (MCV4P) Unknown Completed [facility] HPV Unknown Completed [facility] HIB 4 Dose Schedule Unknown Completed [facility] Hep B, Adol or Pedi Dosage Unknown Completed [facility] HEPATITIS A Unknown Completed [facility] DTaP, Unspecified Formulation Unknown Completed [facility] Varicella (varivax)(chicken pox) Unknown Completed [facility] TDAP Unknown Completed [facility] IPV Unknown Completed [facility] MMR Unknown Completed [facility] Meningococcal Polysaccharide (groups A, C, Y and W-135) conjugate vaccine (MCV4P) Unknown Completed [facility] HPV Unknown Completed [facility] HIB 4 Dose Schedule Unknown Completed [facility] Hep B, Adol or Pedi Dosage Unknown Completed [facility] HEPATITIS A Unknown Completed [facility] DTaP, Unspecified Formulation Unknown Completed [facility] Varicella (varivax)(chicken pox) Unknown Completed [facility] TDAP Unknown Completed [facility] IPV Unknown Completed [facility] MMR Unknown Completed [facility] Meningococcal Polysaccharide (groups A, C, Y and W-135) conjugate vaccine (MCV4P) Unknown Completed [facility] HPV Unknown Completed [facility] HIB 4 Dose Schedule Unknown Completed [facility] Hep B, Adol or Pedi Dosage Unknown Completed [facility] HEPATITIS A Unknown Completed [facility] DTaP, Unspecified Formulation Unknown Completed [facility] Varicella (varivax)(chicken pox) Unknown Completed [facility] TDAP Unknown Completed [facility] IPV Unknown Completed [facility] MMR Unknown Completed [facility] Meningococcal Polysaccharide (groups A, C, Y and W-135) conjugate vaccine (MCV4P) Unknown Completed [facility] HPV Unknown Completed [facility] HIB 4 Dose Schedule Unknown Completed [facility] Hep B, Adol or Pedi Dosage Unknown Completed [facility] HEPATITIS A Unknown Completed [facility] DTaP, Unspecified Formulation Unknown Completed [facility] Varicella (varivax)(chicken pox) Unknown Completed [facility] TDAP Unknown Completed [facility] IPV Unknown Completed [facility] MMR Unknown Completed [facility] Meningococcal Polysaccharide (groups A, C, Y and W-135) conjugate vaccine (MCV4P) Unknown Completed [facility] HPV Unknown Completed [facility] HIB 4 Dose Schedule Unknown Completed [facility] Hep B, Adol or Pedi Dosage Unknown Completed [facility] HEPATITIS A Unknown Completed [facility] DTaP, Unspecified Formulation Unknown Completed [facility] Varicella (varivax)(chicken pox) Unknown Completed [facility] TDAP Unknown Completed [facility] IPV Unknown Completed [facility] MMR Unknown Completed [facility] Meningococcal Polysaccharide (groups A, C, Y and W-135) conjugate vaccine (MCV4P) Unknown Completed [facility] HPV Unknown Completed [facility] HIB 4 Dose Schedule Unknown Completed [facility] Hep B, Adol or Pedi Dosage Unknown Completed [facility] HEPATITIS A Unknown Completed [facility] DTaP, Unspecified Formulation Unknown Completed [facility] Varicella (varivax)(chicken pox) Unknown Completed [facility] TDAP Unknown Completed [facility] IPV Unknown Completed [facility] MMR Unknown Completed [facility] Meningococcal Polysaccharide (groups A, C, Y and W-135) conjugate vaccine (MCV4P) Unknown Completed [facility] HPV Unknown Completed [facility] HIB 4 Dose Schedule Unknown Completed [facility] Hep B, Adol or Pedi Dosage Unknown Completed [facility] HEPATITIS A Unknown Completed [facility] DTaP, Unspecified Formulation Unknown Completed [facility] Varicella (varivax)(chicken pox) Unknown Completed [facility] TDAP Unknown Completed [facility] IPV Unknown Completed [facility] MMR Unknown Completed [facility] Meningococcal Polysaccharide (groups A, C, Y and W-135) conjugate vaccine (MCV4P) Unknown Completed [facility] HPV Unknown Completed [facility] TDAP Unknown Completed [facility] Meningococcal Polysaccharide (groups A, C, Y and W-135) conjugate vaccine (MCV4P) Unknown Completed [facility] HIB 4 Dose Schedule Unknown Completed [facility] Varicella (varivax)(chicken pox) Unknown Completed [facility] IPV Unknown Completed [facility] MMR Unknown Completed [facility] HPV Unknown Completed [facility] HIB 4 Dose Schedule Unknown Completed [facility] Hep B, Adol or Pedi Dosage Unknown Completed [facility] HEPATITIS A Unknown Completed [facility] DTaP, Unspecified Formulation Unknown Completed [facility] Varicella (varivax)(chicken pox) Unknown Completed [facility] TDAP Unknown Completed [facility] IPV Unknown Completed [facility] Hep B, Adol or Pedi Dosage Unknown Completed [facility] MMR Unknown Completed [facility] Meningococcal Polysaccharide (groups A, C, Y and W-135) conjugate vaccine (MCV4P) Unknown Completed [facility] HPV Unknown Completed [facility] HIB 4 Dose Schedule Unknown Completed [facility] Hep B, Adol or Pedi Dosage Unknown Completed [facility] HEPATITIS A Unknown Completed [facility] DTaP, Unspecified Formulation Unknown Completed [facility] HEPATITIS A Unknown Completed [facility] Varicella (varivax)(chicken pox) Unknown Completed [facility] TDAP Unknown Completed [facility] IPV Unknown Completed [facility] MMR Unknown Completed [facility] Meningococcal Polysaccharide (groups A, C, Y and W-135) conjugate vaccine (MCV4P) Unknown Completed [facility] HPV Unknown Completed [facility] HIB 4 Dose Schedule Unknown Completed [facility] Hep B, Adol or Pedi Dosage Unknown Completed [facility] HEPATITIS A Unknown Completed [facility] DTaP, Unspecified Formulation Unknown Completed [facility] Vital Signs Vital Name Observation Time Observation Value Comments S ource Systolic blood pressure 2024-03-31 16:25:00 135 mm[Hg] [facility] Diastolic blood pressure 2024-03-31 16:25:00 89 mm[Hg] [facility] Heart rate 2024-03-31 16:25:00 74 /min Unive [facility] Body temperature 2024-03-31 16:25:00 37.11 [place] [facility] Respiratory rate 2024-03-31 16:25:00 19 /min [facility] Oxygen saturation in Arterial blood by Pulse oximetry 2024-03-31 16:25:00 100 /min [facility] [facility] Body height 2024-03-31 14:00:00 172.7 cm [facility] Body weight 2024-03-31 14:00:00 90.719 kg [facility] BMI 2024-03-31 14:00:00 30.41 kg/m2 [facility] Systolic blood pressure 2023-10-28 13:06:00 150 mm[Hg] [facility] Diastolic blood pressure 2023-10-28 13:06:00 107 mm[Hg] [facility] Heart rate 2023-10-28 13:06:00 71 /min [facility] Oxygen saturation in Arterial blood by Pulse oximetry 2023-10-28 13:06:00 100 /min [facility] Body temperature 2023-10-28 13:04:00 36.17 [place] [facility] Respiratory rate 2023-10-28 13:04:00 16 /min [facility] Body weight 2023-10-28 13:04:00 94.802 kg [facility] BMI 2023-10-28 13:04:00 31.78 kg/m2 [facility] Systolic blood pressure 2023-10-24 01:54:00 124 mm[Hg] [facility] Diastolic blood pressure 2023-10-24 01:54:00 113 mm[Hg] [facility] Heart rate 2023-10-24 01:54:00 79 /min [facility] Body temperature 2023-10-24 01:54:00 37.5 [place] [facility] Respiratory rate 2023-10-24 01:54:00 18 /min [facility] Body height 2023-10-24 01:54:00 172.7 cm [facility] Body weight 2023-10-24 01:54:00 95.165 kg [facility] BMI 2023-10-24 01:54:00 31.90 kg/m2 [facility] Oxygen saturation in Arterial blood by Pulse oximetry 2023-10-24 01:54:00 100 /min [facility] Systolic blood pressure 2023-10-14 16:14:00 146 mm[Hg] [facility] Diastolic blood pressure 2023-10-14 16:14:00 101 mm[Hg] [facility] Heart rate 2023-10-14 16:08:00 67 /min [facility] Respiratory rate 2023-10-14 16:08:00 14 /min [facility] Oxygen saturation in Arterial blood by Pulse oximetry 2023-10-14 16:08:00 100 /min [facility] Body temperature 2023-10-14 15:16:00 35.83 [place] [facility] Body height 2023-10-04 21:00:00 172.7 cm [facility] Body weight 2023-10-04 21:00:00 90.719 kg [facility] BMI 2023-10-04 21:00:00 30.41 kg/m2 [facility] Systolic blood pressure 2023-10-14 15:46:00 141 mm[Hg] [facility] Diastolic blood pressure 2023-10-14 15:46:00 102 mm[Hg] [facility] Heart rate 2023-10-14 15:46:00 69 /min [facility] Respiratory rate 2023-10-14 15:46:00 14 /min [facility] Oxygen saturation in Arterial blood by Pulse oximetry 2023-10-14 15:46:00 100 /min [facility] Body temperature 2023-10-14 15:16:00 35.83 [place] [facility] Body height 2023-10-04 21:00:00 172.7 cm [facility] Body weight 2023-10-04 21:00:00 90.719 kg [facility] BMI 2023-10-04 21:00:00 30.41 kg/m2 [facility] Systolic blood pressure 2023-08-19 13:09:00 146 mm[Hg] [place] [facility] Diastolic blood pressure 2023-08-19 13:09:00 99 mm[Hg] [facility] Heart rate 2023-08-19 13:09:00 66 /min [facility] Oxygen saturation in Arterial blood by Pulse oximetry 2023-08-19 13:09:00 100 /min [facility] Body temperature 2023-08-19 13:07:00 36.61 [place] [facility] Respiratory rate 2023-08-19 13:07:00 18 /min [facility] Body height 2023-08-19 13:07:00 174 cm [facility] Body weight 2023-08-19 13:07:00 90.266 kg [facility] BMI 2023-08-19 13:07:00 29.82 kg/m2 [facility] Systolic blood pressure 2023-07-05 19:08:00 129 mm[Hg] [place] [facility] Diastolic blood pressure 2023-07-05 19:08:00 88 mm[Hg] [facility] Heart rate 2023-07-05 19:08:00 65 /min [facility] Body height 2023-07-05 19:08:00 174 cm [facility] Body weight 2023-07-05 19:08:00 93.123 kg [facility] BMI 2023-07-05 19:08:00 30.76 kg/m2 [facility] Oxygen saturation in Arterial blood by Pulse oximetry 2023-07-05 19:08:00 100 /min [facility] Systolic blood pressure 2022-07-11 14:29:00 145 mm[Hg] [facility] Diastolic blood pressure 2022-07-11 14:29:00 100 mm[Hg] [facility] Heart rate 2022-07-11 14:29:00 83 /min [facility] Body temperature 2022-07-11 14:29:00 37 [place] [facility] Respiratory rate 2022-07-11 14:29:00 18 /min [facility] Body height 2022-07-11 14:29:00 172.7 cm [facility] Body weight 2022-07-11 14:29:00 105.688 kg [facility] BMI 2022-07-11 14:29:00 35.43 kg/m2 [facility] Oxygen saturation in Arterial blood by Pulse oximetry 2022-07-11 14:29:00 99 /min [facility] Systolic blood pressure 2021-06-22 20:51:00 119 mm[Hg] [facility] Diastolic blood pressure 2021-06-22 20:51:00 81 mm[Hg] [facility] Heart rate 2021-06-22 20:51:00 102 /min [facility] Body temperature 2021-06-22 20:51:00 36.72 [place] [facility] Respiratory rate 2021-06-22 20:51:00 20 /min [facility] Body height 2021-06-22 20:51:00 174 cm [facility] Body weight 2021-06-22 20:51:00 100.971 kg [facility] BMI 2021-06-22 20:51:00 33.35 kg/m2 [facility] Procedures Procedure Date / Time Performed Performing Clinician Source [place] SIMPLE REPAIR F/E/E/N/L/M 2.5CM/< 2024-03-31 16:06:42 Beatriz Rizvi [facility] CT MAXILLOFACIAL/MANDIBLE WO CONTRAST 2024-03-31 14:32:00 Beatriz Rizvi [facility] CT HEAD WO CONTRAST 2024-03-31 14:32:00 Jayant Rizvi [facility] [address] - [place] EXC B9 LESION MRGN XCP SK TG T/A/L >4.0 CM 2023-10-14 13:43:00 Angelica Montano [facility] [address] - [place] EXC TUMOR SOFT TISSUE THIGH/KNEE SUBFASC 5 CM/> 2023-10-14 13:43:00 Angelica Montano [facility] CT FEMUR LEFT W CONTRAST 2023-10-02 13:34:14 Do scottie Montano [facility] HB CREATININE SERUM/BLOOD FOR IMAGING 2023-10-02 13:20:00 Angelica Montano [facility] PHYSICIAN ORDERS 2023-09-17 17:20:04 Doctor Unas signed, [place] [facility] RADIOLOGY DOCUMENTATION 2023-08-08 05:01:00 Doct or Unassigned, [place] [facility] REFERRAL- REQUEST/RESPONSE 2023-07-26 06:01:00 Doctor Unassigned, [place] [facility] XR HAND 3+ VW LEFT 2023-07-05 19:55:00 Zita Cortes [facility] XR TIBIA FIBULA 2 VW LEFT 2022-07-11 14:54:28 Todd Pereira [facility] NOTICE OF PRIVACY PRACTICES 2022-07-11 14:22:44 Doctor Unassigned, [place] [facility] CONSENT/REFUSAL FOR DIAGNOSIS AND TREATMENT 2022-07-11 14:19:52 Doctor Unassigned, [place] [facility] Encounters Start Date/Time End Date/Time Encounter Type Admission Type Attending Clinicians Care Facility Care Department Encounter ID Source 2023-08-27 14:37:55 Outpatient ANGELICA BARRAGAN [facility] [id number] [facility] 2022-12-27 11:08:[address] [facility] [id number] [facility] 2022-12-04 09:26:[address] [facility] [id number] [facility] 2022-12-03 09:40:[address] [facility] [id number] [facility] 2022-11-30 16:13:[address] [facility] [id number] [facility] 2023-09-17 00:00:00 2024-07-11 02:14:37 Orders Only Doctor Unassigned, [place] Doctor Unassigned, [place] [facility] NIKITA[facility] 1.2.840.114 350.1.13.10 4.2.7.2.686 [id number] [facility] 2024-03-31 08:02:00 2024-03-31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
--- NOTE | 2024-09-17 05:12 | ER ---
Nurse's Notes [facility] Name: Ez Fulton Age: 24 yrs Sex: Male : 2000 Arrival Date: 09/17/2024 Time: 04:18 Bed 5 Private MD: Diagnosis: Cellulitis of left lower limb Presentation: 09/17 04:37 Chief complaint: Received sutures to LLE 1 week ago, reports increasing swelling, pain, hb and redness over last 2-3 days. Coronavirus screen: At this time, the client does not indicate any symptoms associated with coronavirus-19. Ebola Screen: No symptoms or risks identified at this time. Initial Sepsis Screen: Does the patient meet any 2 criteria? No. Patient's initial sepsis screen is negative. Does the patient have a suspected source of infection? No. Patient's initial sepsis screen is negative. Risk Assessment: Do you want to hurt yourself or someone else? Patient reports no desire to harm self or others. Onset of symptoms was September 17, 2024. 04:37 Method Of Arrival: Ambulatory hb 04:37 Acuity: EVER 3 hb Historical: - Allergies: 04:39 No Known Allergies; hb - Home Meds: 04:39 None [Active]; hb - PMHx: 04:39 mass to left medial thigh; torn achilles- left; hb - PSHx: 04:39 excision of mass to left medial thigh; repair of left achilles; hb - Immunization history:: Adult Immunizations up to date. - Infectious Disease History:: Denies. - Social history:: Smoking status: Reported history of juuling and/or vaping. - Family history:: not pertinent. - Hospitalizations: : No recent hospitalization is reported. Screenin:53 [facility] ED Fall Risk Assessment (Adult) History of falling in the last 3 months, mb12 including since admission No falls in past 3 months (0 pts) Confusion or Disorientation No (0 pts) Intoxicated or Sedated No (0 pts) Impaired Gait No (0 pts) Mobility Assist Device Used No (0 pt) Altered Elimination No (0 pt) Score/Fall Risk Level 0 - 2 = Low Risk. [facility] ED Fall Risk Assessment (Adult) Score/Fall Risk Level 0 - 2 = Low Risk Oriented to surroundings, Maintained a safe environment, Educated pt \T\ family on fall prevention, incl call for assistance when getting out of bed, Assessed \T\ reinforced patient's understanding of fall precautions, Provided non-skid footwear. Abuse screen: Denies threats or abuse. Denies injuries from another. Nutritional screening: No deficits noted. Tuberculosis screening: No symptoms or risk factors identified. Assessment: 04:53 General: Appears in no apparent distress. comfortable, Behavior is calm, cooperative, mb12 appropriate for age. Pain: Complains of pain in left leg Pain currently is 4 out of 10 on a pain scale. Quality of pain is described as aching. Neuro: No deficits noted. Level of Consciousness is awake, alert, obeys commands, Oriented to person, place, time, situation. Cardiovascular: No deficits noted. Respiratory: No deficits noted. GI: No deficits noted. Derm: Wound noted left g[place]. Vital Signs: 04:37 BP 151 / 111; Pulse 86; Resp 16; Temp 98.5(O); Pulse Ox 100% on R/A; Weight 86.18 kg; hb Height 5 ft. 8 in. ; Pain 8/10; 04:53 BP 132 / 100; Pulse 81; Resp 14; Pulse Ox 99% ; mb12 05:31 BP 130 / 90; Pulse 84; Resp 16; Temp 98.1; Pulse Ox 99% ; Pain 3/10; mb12 04:37 Body Mass Index 28.89 (86.18 kg, 172.72 cm) hb 04:37 Pain Scale: Adult hb 05:31 Pain Scale: Adult mb12 ED Course: 04:20 Patient arrived in ED. [email or web address] 04:21 [facility] Duke MD is Attending Physician. rn 04:39 Triage completed. hb 04:39 Arm band placed on. hb 04:53 Patient has correct armband on for positive identification. Bed in low position. Call mb12 light in reach. Side rails up X 1. 05:31 No provider procedures requiring assistance completed. mb12 Administered Medications: 05:21 Drug: Trimethoprim-Sulfamethoxazole PO (160 mg-800 mg (DS) 1 tablet PO once Route: PO; mb12 05:32 Follow up: Response: No adverse reaction mb12 Medication: 04:53 VIS not applicable for this client. mb12 Outcome: 05:12 Discharge ordered by . rn 05:31 Discharged to home ambulatory, mb12 05:31 Condition: stable 05:31 Discharge instructions given to patient, Instructed on discharge instructions, follow up and referral plans. medication usage, Demonstrated understanding of instructions, follow-up care, medications, Prescriptions given X 1, 05:33 Patient left the ED. mb12 Signatures: Hugh Duke MD MD rn Baxter, Heather, RN RN hb Jeffries, Jennifer [email or web address] Benavides, Marlem mb12
--- NOTE | 2024-09-17 05:12 | EDPHYS ---
Physician Documentation [facility] Name: Sincere Donaldo Age: 24 yrs Sex: Male : 2000 Arrival Date: 09/17/2024 Time: 04:18 Bed 5 Private MD: ED Physician Hugh Duke HPI: 09/17 04:55 This 24 yrs old Male presents to ER via Ambulatory with complaints of Wound rn Infection. 05:05 Pt reports had leg laceration last week, sutured here, not sent home with abx, now has rn redness and warmth. No fever or chills. . Historical: - Allergies: 04:39 No Known Allergies; hb - Home Meds: 04:39 None [Active]; hb - PMHx: 04:39 mass to left medial thigh; torn achilles- left; hb - PSHx: 04:39 excision of mass to left medial thigh; repair of left achilles; hb - Immunization history:: Adult Immunizations up to date. - Infectious Disease History:: Denies. - Social history:: Smoking status: Reported history of juuling and/or vaping. - Family history:: not pertinent. - Hospitalizations: : No recent hospitalization is reported. ROS: 05:05 Constitutional: Negative for fever, chills, and weight loss, Cardiovascular: Negative rn for chest pain, palpitations, and edema, Respiratory: Negative for shortness of breath, cough, wheezing, and pleuritic chest pain, Skin: + for redness and warmth to left leg Exam: 05:05 Constitutional: This is a well developed, well nourished patient who is awake, alert, rn and in no acute distress. Cardiovascular: Regular rate and rhythm. No pulse deficits. MS/ Extremity: Left pretibial laceration that has been sutured, but shiny in appearance and mild erythema with warmth. No drainage from wound or fluctuance. Wound slightly gaping but no dehiscence. Vital Signs: 04:37 BP 151 / 111; Pulse 86; Resp 16; Temp 98.5(O); Pulse Ox 100% on R/A; Weight 86.18 kg; hb Height 5 ft. 8 in. ; Pain 8/10; 04:53 BP 132 / 100; Pulse 81; Resp 14; Pulse Ox 99% ; mb12 05:31 BP 130 / 90; Pulse 84; Resp 16; Temp 98.1; Pulse Ox 99% ; Pain 3/10; mb12 04:37 Body Mass Index 28.89 (86.18 kg, 172.72 cm) hb 04:37 Pain Scale: Adult hb 05:31 Pain Scale: Adult mb12 MDM: 04:21 Medical Screening Exam initiated rn 05:09 Differential diagnosis: cellulitis, wound infection. Data reviewed: vital signs, nurses rn notes, and as a result, I will discharge patient. Counseling: I had a detailed discussion with the patient and/or guardian regarding the historical points, exam findings, and any diagnostic results supporting the discharge/admit diagnosis, the need for outpatient follow up, to return to the emergency department if symptoms worsen or persist or if there are any questions or concerns that arise at home. Special discussion: I discussed with the patient/guardian in detail that at this point there is no indication for admission to the hospital. It is understood, however, that if the symptoms persist or worsen the patient needs to return immediately for re-evaluation. Administered Medications: 05:21 Drug: Trimethoprim-Sulfamethoxazole PO (160 mg-800 mg (DS) 1 tablet PO once Route: PO; mb12 05:32 Follow up: Response: No adverse reaction mb12 Disposition Summary: 09/17/24 05:12 Discharge Ordered Notes: Location: Home rn Problem: new rn Symptoms: are unchanged rn Condition: Stable rn Diagnosis - Cellulitis of left lower limb rn Followup: rn - With: Private Physician - When: As needed - Reason: Recheck today's complaints, Re-evaluation by your physician Discharge Instructions: - Discharge Summary Sheet rn - Cellulitis, Adult rn Forms: - Medication Reconciliation Form rn - Antibiotic transitions manager rn - Prescription Opioid Use rn - Patient Portal Instructions rn - Leadership Thank You Letter rn - Work release form dd2 Prescriptions: - Bactrim DS 800-160 mg Oral Tablet - take 1 tablet ORAL route every 12 hours for 10 days; 20 tablet; Refills: 0, rn Product Selection Permitted Signatures: Hugh Duke MD MD rn Baxter, Heather, RN RN hb Benavides, Marlem 12
[2024-09-17] MEDS ORDERED: SMZ./TMP. 800/160 MG TABLET ONE (05:20)
[2024-09-17 05:38] VITALS: O2SAT 99
[2024-09-17 05:40] VITALS: BP 130/90; TEMP 98.1
== END 2024-09-17 05:33 | disposition home or self-care (01) ==
LOC: ER 04:18
DX: L03.116 Cellulitis of left lower limb (principal)
CPT/HCPCS: 99283